=== PATIENT | female | born 1965 | race Caucasian/White ===

== ENCOUNTER 2019-05-30 06:45 | Emergency (ER) | payer BC, SELFPAY ==
--- NOTE | ~2019-05-30 | CT_ITS ---
EXAMINATION: CT abdomen pelvis w con DATE: 05/30/2019 07:47 INDICATION: Right flank pain TECHNIQUE: Computed tomography (CT) of the abdomen and pelvis was performed with 100 cc Omnipaque 350 intravenous contrast. The dose-length product was 862.60 mGy-cm. Automated exposure control and iter ative reconstruction technique were employed. COMPARISON: CT dated 02/06/2014 FINDINGS: Bibasilar dependent atelectasis. Heart size normal. No pleural or pericardial effusion. No significant vascular abnormality. Fatty infiltration of the liver. The spleen, pancreas, adrenal glands and right kidney are unremarkab le. There is a 2 cm left renal cyst. There are calcified granulomas in the spleen. Gallbladder is pre sent. Nonobstructive bowel gas pattern. Status post hysterectomy. Appendix is mildly thickened measur ing 8 mm transversely. No significant periappendiceal inflammation. No free air or free fluid. IMPRESSION: 1. Mild thickening of the appendix without significant periappendiceal inflammation. Cannot exclude e natasha acute appendicitis. Clinically correlate. 2: Hepatic steatosis. Reviewed, dictated and finalized at location A. IMPRESSION: 1. Mild thickening of the appendix without significant periappendiceal inflamma tion. Cannot exclude early acute appendicitis. Clinically correlate. 2: Hepatic steatosis.
[2019-05-30 06:51] VITALS: BP 140/89; PULSE 96; RESP 16; TEMP 36.5; O2SAT 99
--- NOTE | 2019-05-30 07:17 | ED.GENADULT ---
HPI - General Adult General Chief complaint: Back Pain/Injury Stated complaint: right flank pain Time Seen by Provider: 05/30/19 07:10 Source: RN notes reviewed History of Present Illness HPI narrative: Patient presents emergency department from home for right flank pain. Patient states symptoms began last night. Pain is located in the right flank and radiates around to the right lower abdomen. Patient states the pain is worse with movement. States she did take ibuprofen at approximately 5:30 AM this morning with minimal relief. States associated with nausea. Denies any fevers or chills chest pain shortness of breath diarrhea or any other symptoms. Patient denies any known trauma or injury Related Data Home Medications Medication Instructions Recorded Confirmed ibuprofen [Advil] 200 mg PO Q6H PRN 05/30/19 levothyroxine [Synthroid] 75 mcg PO DAILY 05/30/19 metformin 500 mg PO DAILY 05/30/19 byvovkzxllgs-mtcgfklr-mjoxwf 1 tablet PO DAILY 05/30/19 [Multivitamin 50 Plus] omega 2-vae-zda-fish oil [Fish Oil] 1 cap PO DAILY 05/30/19 rosuvastatin 10 mg PO DAILY 05/30/19 Allergies Allergy/AdvReac Type Severity Reaction Status Date / Time adhesive Allergy Mild Rash Verified 05/30/19 07:56 latex AdvReac Unknown Rash Verified 05/30/19 07:56 Review of Systems Review of Systems: Narrative: Gen.: Denies fevers or chills ENT: Denies congestion Respiratory: Denies shortness of breath or cough CV: Denies chest pain or palpitations GI: See HPI denies burning, urgency, frequency or hematuria Musculoskeletal: Denies back pain or muscle pain Neuro: Denies numbness, tingling, weakness or focal weakness Skin: Denies rash Except as documented, all other systems reviewed and negative FOR[facility]LY [facility] Past Medical History Medical History (Updated 05/30/19 @ 08:49 by Anthony Raman DO) Diabetes mellitus Hyperlipidemia Hypothyroidism Surgical History Surgical History (Updated 05/30/19 @ 07:18 by Anthony Raman DO) H/O: hysterectomy Family History Family History (Updated 10/19/15 @ 23:19 by DOCTOR UNKNOWN) Father Family history of chronic obstructive pulmonary disease Family history of diabetes mellitus in first degree relative Family history of lung cancer Family history of heart disease in male family member before age 55 Mother Carcinoma of colon Family history of heart disease in male family member before age 55 Social History Social History Smoking status: Never smoker Alcohol intake: never Exam Narrative: Exam Narrative: APPEARANCE: No acute distress, nontoxic, resting in bed HEENT: Normocephalic, atraumatic, OMM RESPIRATORY: No respiratory distress, clear to auscultation bilaterally with no rhonchi wheezing or rales CARDIOVASCULAR: RRR s murmur ABDOMINAL: Soft, nondistended, tender palpation right lower quadrant with mild tenderness right upper quadrant, no tenderness left lower quadrant left lower quadrant, no rebound or guarding Back: No midline thoracic lumbar tenderness palpation, tender palpation over right paravertebral muscles L3-5, pain increased with forward flexion MUSCULOSKELETAl: Moves all extremities. No clubbing, cyanosis or edema. NEURO: Awake and alert. Following commands, speech normal, no focal deficits muscle strength 5 out of 5 bilateral upper and lower extremities SKIN:: Warm, dry. Normal Color PSYCHIATRIC: Normal affect/mood Course Course Emergency Course: Following CT scan reevaluate the patient patient does have mild tenderness in the right lower quadrant Called discussed with Dr. Grimaldo will come see the patient in the emergency department Dr. Grimaldo came and evaluated the patient. At this time feels appendicitis is unlikely. Request patient start on Augmentin for 7 days and follow-up as an outpatient Discussed with patient results of workup and diagnosis. Discussed need for follow-up with primary care, pr
[2019-05-30] MEDS: LACTATED RINGERS 1,000 ML 999 ML IV CONT (07:29)
[2019-05-30] MEDS: MORPHINE SULFATE 4 MG/ML INJ IV PUSH (07:29)
[2019-05-30] MEDS: ONDANSETRON INJ 4 MG/2 ML VIAL IV PUSH (07:30)
[2019-05-30 07:33] LABS: Basophils Percent Auto 0.7 % (0.2-1.2); Eosinophils Absolute Auto 0.1 K/mm3 (0-0.3); Eosinophils Percent Auto 2.4 % (0-4.4); Hematocrit 41.7 % (37.0-47.0); Immature Granulocyte Absolute 0.03 K/mm3 (0.00-0.031); Immature Granulocyte Percent A 0.7 % (0-0.5); Lymphocytes Absolute Auto 1.29 K/mm3 (0.9-3.2); Lymphocytes Percent Auto 28.5 % (18.3-44.2); Mean Corpuscular HGB Conc 31.2 g/dl (32-36); Mean Corpuscular Hemoglobin 27.1 pg (26-34); Mean Corpuscular Volume 87.1 fl (80-100); Mean Platelet Volume 10.3 fl (7.4-10.4); Monocytes Absolute Auto 0.3 K/mm3 (0.1-0.6); Monocytes Percent Auto 7.3 % (2.6-8.5); Neutrophils Absolute Auto 2.7 K/mm3 (1.3-6.7); Neutrophils Percent Auto 60.4 % (45.5-73.1); Platelet Count Result 279 k/mm3 (150-375); Red Blood Count 4.79 M/mm3 (4.2-5.4); Red Cell Distribution Width 13.7 % (11.5-14.5); White Blood Count 4.5 K/mm3 (4.5-10.0)
[2019-05-30 07:35] LABS: Add Urine Microscopic? NO; Appearance Urine Clear (Clear); Bilirubin Urine Negative (Negative); Blood Urine Negative (Negative); Color Urine Colorless (Yellow); Glucose Urine UA Negative (Negative); Ketones Urine Negative (Negative); Leukocyte Esterase Ur Negative LEU/UL (Negative); Nitrate Urine Negative (Negative); Protein Urine Negative (Negative); Specific Grav Ur 1.006 (1.001-1.035); Urobilinogen Urine Negative mg/dL (<2.0)
[2019-05-30 07:43] LABS: Estimated Glomerular Filt Rate > 60
[2019-05-30 07:45] LABS: Alanine Aminotransferase 49 U/L (4-35); Albumin Level 4.8 g/dL (3.5-5.1); Alkaline Phosphatase 97 U/L (38-126); Aspartate Amino Transferase 33 U/L (14-36); Bilirubin,Total 0.6 mg/dL (0.2-1.3); Blood Urea Nitrogen 15 mg/dL (7-17); Calcium 9.7 mg/dL (8.4-10.2); Carbon Dioxide 26 mmol/L (22-30); Chloride 105 mmol/L (98-107); Estimated Glomerular Filt Rate > 60; Glucose 146 mg/dL (65-105); Lipase 228 U/L (23-300); Potassium 4.2 mmol/L (3.4-5.0); Sodium 138 mmol/L (137-145)
[2019-05-30 09:23] VITALS: BP 136/89; PULSE 76; RESP 20; O2SAT 95
--- NOTE | 2019-05-30 10:02 | PM.CNGS ---
Assessment and Plan Assessment and plan (1) Low back pain: Code(s): M54.5 - Low back pain Status: Acute Assessment and Plan: The patient was seen and examined. CT scan reviewed and discussed with the patient. There is no significant inflammation noted around the appendix on the CT scan and her appendix is only minimally thickened at 8 mm. No obvious appearance of acute appendicitis. Labs were unremarkable. Her white blood cell count is normal and she is afebrile. Her abdominal exam reveals very mild right lower quadrant tenderness with no guarding or rebound tenderness. She reports this as more of discomfort than pain during my exam. Her primary complaint is the pain in her lower back just right of the lumbar spine. This back pain is also reproducible on exam with palpation and with flexion and extension of the lumbar spine. Clinically, I have a low suspicion of early acute appendicitis, although this is possible, and believe that this is likely musculoskeletal pain. I discussed the case with Dr. Grimaldo, who will be evaluating the patient separately. It would be reasonable to treat her conservatively at this time with a course of outpatient oral antibiotics and also treat the suspected musculoskeletal pain. The patient should return if symptoms do not improve or worsen in the next 48 hours. I discussed the pathophysiology of appendicitis with the patient and what worsening symptoms would include to monitor for at home. All questions were answered. (2) Abdominal tenderness, right lower quadrant: Code(s): R10.813 - Right lower quadrant abdominal tenderness Status: Acute (3) Hyperlipidemia: Code(s): E78.5 - Hyperlipidemia, unspecified Status: Acute (4) Hypothyroidism: Code(s): E03.9 - Hypothyroidism, unspecified Status: Acute (5) Diabetes mellitus: Code(s): E11.9 - Type 2 diabetes mellitus without complications Status: Acute History of Present Illness Consult details Consult date: 05/30/19 Reason for consult: other (Surgical evaluation for possible acute appendicitis with a patient who has right flank pain with CT scan findings of a mildly thickened appendix) Requesting physician: Anthony Raman DO Narrative: This is a 54-year-old female with a history of hyperlipidemia, borderline diabetes mellitus type 2, and hypothyroidism, presented to the emergency department with complaints of right lower back pain. The patient reports that her symptoms started yesterday afternoon. She was sitting in a chair and had a sudden onset of right lower back pain without any radiating symptoms. She reports this as a constant dull pain that becomes a stabbing pain with certain movements. Pain would worsen with flexion and extension of the lumbar spine or while lying flat and supine in bed. The patient was unable to sleep last night and was taking Advil for the pain, which she felt did help some. This morning, she also noticed some right lower quadrant abdominal pain at times if she was bending forward, but this would go away at rest. The back pain continued into the morning and would not improve, therefore she presented to the emergency department for further evaluation. CT scan of the abdomen and pelvis revealed mild thickening of the appendix without significant periappendiceal inflammation, measuring 8 mm transversely, and hepatic steatosis. Labs were unremarkable and revealed a normal white blood cell count and normal urinalysis. Our service was then contacted for surgical evaluation of possible early acute appendicitis. The patient is now being seen in the emergency department. She reports the pain is all in her right lower back and points just right of the lumbar spine. She denies abdominal pain at rest. Denies vomiting, fever, chills, or change in appetite. Reports bowels have been moving normally without any changes. She does report a short episode of nausea on the ride to the
[2019-05-30] MEDS: AMOXICILLIN/CLAVULANATE K 875-125 MG TAB 1 TABLET PO (10:33)
[2019-05-30 10:45] VITALS: BP 130/78; PULSE 76; RESP 16; O2SAT 99
== END 2019-05-30 10:46 | disposition home or self-care (01) ==
PROVIDERS: Emergency Provider Emergency Medicine; PCP Physician Assistant
DX: M54.5 Low back pain (principal); R10.813 Right lower quadrant abdominal tenderness; E78.5 Hyperlipidemia, unspecified; E03.9 Hypothyroidism, unspecified; Z79.84 Long term (current) use of oral hypoglycemic drugs; R73.03 Prediabetes; K76.0 Fatty (change of) liver, not elsewhere classified; R93.5 Abnormal findings on diagnostic imaging of other abdominal regions, including retroperitoneum
CPT/HCPCS: 36415; 74177; 80048; 80076; 81003; 83690; 85025; 96361; 96374; 96375; 99284; A9270; J2270; J2405; J7120; Q9967

== ENCOUNTER 2020-06-19 10:10 | Emergency (ER) | payer BC, SELFPAY ==
[2020-06-19] VITALS (15 sets, daily range): BP systolic 121–169; BP diastolic 84–104; PULSE 76–89; RESP 13–24; TEMP 36.4–36.8; O2SAT 98
--- NOTE | ~2020-06-19 | XR_ITS ---
EXAMINATION: XR chest 2V 06/19/2020 10:40 INDICATION: Midsternal chest pain PROCEDURE: 2 view chest COMPARISON: 10/03/2015 FINDINGS: The lungs are clear. The cardiomediastinal silhouette is within normal limits. There are no pleural effusions. There is no pneumothorax suspected. IMPRESSION: 1: NO ACUTE CARDIOPULMONARY DISEASE. Reviewed, dictated and finalized at location B.
--- NOTE | ~2020-06-19 | US_ITS ---
EXAMINATION: US right upper quadrant EXAM DATE: 06/19/2020 11:37 INDICATION: Right upper quadrant abdominal pain. TECHNIQUE: Multiple grayscale and Doppler images of the abdomen right upper quadrant were obtained (b y a technologist who performed the scan) and subsequently reviewed. Comparison is made to prior exami nation from 07/03/2015. FINDINGS: The pancreatic head and body are normal in appearance. The pancreatic tail is not visualized. There is echogenic liver parenchyma, hepatic steatosis. There are no focal liver lesions identified. Th ere is no evidence of intrahepatic biliary duct dilation. Portal venous flow was seen in the hepatop edal, normal direction and has normal Doppler waveform. No right-sided hydronephrosis. Common bile duct measures 2 mm, which is normal. The gallbladder wall is normal in thickness, with ex pected amount of distention. No sonographic evidence of pericholecystic fluid. There is no cholelit hiases. Technologist performing exam reports patient did not demonstrate sonographic Welch's sign. Please note that this sign is less reliable in patients who have received pain medication. IMPRESSION: 1. Hepatic steatosis. 2. Normal gallbladder. Reviewed, dictated and finalized at location A.
--- NOTE | 2020-06-19 10:18 | ECG_ITS ---
Measurements Intervals [place] Rate: 85 P: 31 WI: 157 QRS: 5 QRSD: 90 T: -1 QT: 351 QTc: 418 Interpretive Statements SINUS RHYTHM LOW QRS VOLTAGE IN PRECORDIAL LEADS BORDERLINE T WAVE ABNORMALITY- INFERIOR LEADS BORDERLINE ECG Electronically Signed On 06-19-2020 10:30:12 CDT by Sid Pope D.O.
[2020-06-19 10:34] LABS: Basophils Percent Auto 0.5 % (0.2-1.2); Eosinophils Absolute Auto 0.1 K/mm3 (0-0.3); Eosinophils Percent Auto 2.5 % (0-4.4); Hemoglobin 13.7 g/dL (12.0-15.0); Immature Granulocyte Absolute 0.01 K/mm3 (0.00-0.031); Immature Granulocyte Percent A 0.2 % (0-0.5); Lymphocytes Absolute Auto 1.37 K/mm3 (0.9-3.2); Lymphocytes Percent Auto 31.3 % (18.3-44.2); Mean Corpuscular HGB Conc 31.9 g/dl (32-36); Mean Corpuscular Hemoglobin 27.6 pg (26-34); Mean Corpuscular Volume 86.5 fl (80-100); Mean Platelet Volume 9.9 fl (7.4-10.4); Monocytes Absolute Auto 0.4 K/mm3 (0.1-0.6); Monocytes Percent Auto 8.2 % (2.6-8.5); Neutrophils Absolute Auto 2.5 K/mm3 (1.3-6.7); Neutrophils Percent Auto 57.3 % (45.5-73.1); Platelet Count Result 275 k/mm3 (150-375); Red Blood Count 4.97 M/mm3 (4.2-5.4); Red Cell Distribution Width 13.6 % (11.5-14.5); White Blood Count 4.4 K/mm3 (4.5-10.0)
[2020-06-19 10:44] LABS: INR 0.9; Partial Thromboplastin Time 26.2 SECONDS (22.3-36.8); Prothrombin Time 12.3 Seconds (11.1-14.7)
[2020-06-19 10:45] LABS: Potassium 3.8 mmol/L (3.4-5.0)
[2020-06-19 10:47] LABS: Anion Gap 7 mmol/L (8-16); Blood Urea Nitrogen 17 mg/dL (7-17); Carbon Dioxide 30 mmol/L (22-30); Chloride 104 mmol/L (98-107); Estimated CRCL calculation 67 ml/min; Estimated Glomerular Filt Rate > 60; Glucose 113 mg/dL (65-105); Sodium 141 mmol/L (137-145)
[2020-06-19 10:58] LABS: Troponin I < 0.012 ng/mL (0.000-0.034)
--- NOTE | 2020-06-19 11:56 | ED.CHESTPAIN ---
HPI - Chest Pain General Chief Complaint: Chest Pain Stated Complaint: chest/back pain into jaw Time Seen by Provider: 06/19/20 10:55 History of Present Illness HPI narrative: Patient is a 55-year-old female who presents ER with right-sided chest pain beneath her breast that began at 9 AM. Sudden onset and sharp. Radiated to her back and up into her neck. She reports she has this a couple times a month has been going on for the last several years. This was more intense than typical so she opted to come in for evaluation. No history of coronary disease. She has had outpatient ultrasound 5 years ago that did not show gallstones. She denies any aggravating or alleviating factors. Symptoms lasted for couple minutes and then subsided. She reports she felt a little sweaty/clammy and nauseated when it occurred initially. Related Data Home Medications Medication Instructions Recorded Confirmed ibuprofen [Advil] 200 mg PO Q6H PRN 05/30/19 levothyroxine [Synthroid] 75 mcg PO DAILY 05/30/19 metformin 500 mg PO DAILY 05/30/19 njwvlilckorl-mjyjsvki-dftghe 1 tablet PO DAILY 05/30/19 [Multivitamin 50 Plus] omega 5-xbq-nop-fish oil [Fish Oil] 1 cap PO DAILY 05/30/19 rosuvastatin 10 mg PO DAILY 05/30/19 Allergies Allergy/AdvReac Type Severity Reaction Status Date / Time adhesive Allergy Mild Rash Verified 06/19/20 10:19 latex AdvReac Unknown Rash Verified 06/19/20 10:19 Review of Systems Review of Systems: All systems reviewed & are unremarkable except as noted in HPI and below Constitutional: Constitutional: Denies chills, Denies fever(s) and Denies weakness Cardiovascular: Cardiovascular: Reports chest pain, Denies rapid heart rate and Reports radiating jaw, neck or arm pain Respiratory: Respiratory: Denies cough, Denies dyspnea and Denies wheezing Gastrointestinal: Gastrointestinal: Reports abdominal pain, Denies diarrhea, Reports nausea and Denies vomiting Musculoskeletal: Musculoskeletal: Denies back pain and Denies muscle cramps PMF Past Medical History Medical History (Updated 06/19/20 @ 14:25 by Volodymyr Green MD) Diabetes mellitus Borderline diabetic on metformin Hyperlipidemia Hypothyroidism Surgical History Surgical History (Updated 05/30/19 @ 10:19 by CAYDEN Estrella) H/O: hysterectomy History of vaginal partial hysterectomy in 2000. History of bilateral salpingo-oophorectomy Laparoscopic bilateral salpingo-oophorectomy in 2018 History of colonoscopy Multiple. No significant findings per the patient. History of excision of mass Excision of lipoma of the neck. Multiple excisions of cysts on the head and right upper extremity. History of knee surgery Bilateral Family History Family History Father Family history of chronic obstructive pulmonary disease Family history of diabetes mellitus in first degree relative Family history of lung cancer Family history of heart disease in male family member before age 55 Kidney malignancy Mother Carcinoma of colon Family history of heart disease in male family member before age 55 Sibling Carcinoma of colon Social History Social History Smoking status: Never smoker Alcohol intake: never Substance use type: does not use Additional living arrangements comments: Lives with . Has two children. 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 Gender identity (if verbalized by the patient): Female Exam Narrative: Exam Narrative: GENERAL: Well-appearing, well-nourished, and in no acute distress. HEAD: Normocephalic, atraumatic. ENT: Mucous membranes moist. CHEST: Clear to auscultation. No respiratory distress. HEART: Regular rate and rhythm. Normal peripheral pulses. ABDOMEN: Soft, nontender, nondistended. EXTREMITIES: Normal range of motion. No edema. NEURO: Alert and
[2020-06-19 14:01] LABS: Troponin I < 0.012 ng/mL (0.000-0.034)
== END 2020-06-19 14:53 | disposition home or self-care (01) ==
PROVIDERS: Emergency Medicine; Emergency Provider Emergency Medicine; PCP Physician Assistant
DX: R07.9 Chest pain, unspecified (principal); R73.03 Prediabetes; Z79.84 Long term (current) use of oral hypoglycemic drugs; E78.5 Hyperlipidemia, unspecified; E03.9 Hypothyroidism, unspecified; K76.0 Fatty (change of) liver, not elsewhere classified
CPT/HCPCS: 36415; 71046; 76705; 80048; 84484; 85025; 85610; 85730; 93005; 99284

== ENCOUNTER → 2020-07-14 09:34 | Outpatient (CLI) | payer BC, SELFPAY ==
--- NOTE | ~2020-07-14 | XR_ITS ---
XR thoracic spine 3V 07/14/2020 11:38 Indication: Back pain Procedure: 3 views thoracic spine Comparison: 09/29/2017 Findings: Mild dextrocurvature of the thoracic spine. No fracture, subluxation or dislocation. Pedicl es intact. No paraspinal soft tissue abnormality. Surrounding osseous structures are unremarkable. No significant disc narrowing. Impression: 1: Mild dextroscoliosis of the thoracic spine. Reviewed, dictated and finalized at location A. Impression: 1: Mild dextroscoliosis of the thoracic spine.
== END ==
PROVIDERS: PCP Physician Assistant; Visit Provider Physician Assistant
DX: M54.6 Pain in thoracic spine (principal)
CPT/HCPCS: 72072

== ENCOUNTER → 2020-08-10 07:30 | Outpatient (CLI) | payer BC, SELFPAY ==
[2020-08-10 19:22] LABS: SARS-CoV-2 RNA PCR Negative
== END ==
PROVIDERS: PCP Physician Assistant; Visit Provider Internal Medicine Gastroenterology
DX: Z01.812 Encounter for preprocedural laboratory examination (principal); Z20.822 Contact with and (suspected) exposure to COVID-19
CPT/HCPCS: C9803; U0003; U0005

== ENCOUNTER 2020-08-13 00:32 | Day surgery (SDC) | payer BC, SELFPAY ==
[2020-08-02 10:12] VITALS: BMI 34.0
[2020-08-13 10:44] VITALS: BP 140/87; PULSE 80; RESP 20; TEMP 36.4; O2SAT 97
[2020-08-13] MEDS: LACTATED RINGERS 1,000 ML 150 ML IV CONT (10:56)
--- NOTE | 2020-08-13 10:59 | WPDANESEPPF ---
Anes - Initial Pre Proc Eval Procedure: Operation Date: 08/13/20 11:45 Proposed Procedures p Esophagogastroduodenoscopy - Abdulaziz Uribe MD Date/Time: 08/13/20 10:59 Surgeon: Abdulaziz Uribe MD Pre Op Diagnosis: GERD Patient Data Age: 55 Gender: F Height: 5 ft 4 in Weight: 90.6 kg Last Vital Signs Temp 36.4 C L 08/13/20 10:44 Pulse 80 08/13/20 10:44 Resp 20 08/13/20 10:44 BP 140/87 08/13/20 10:44 Pulse Ox 97 08/13/20 10:44 Allergies Allergy/AdvReac Type Severity Reaction Status Date / Time adhesive Allergy Mild Rash Verified 08/13/20 10:42 latex AdvReac Unknown Rash Verified 08/13/20 10:42 Home Medications Medication Instructions Recorded Confirmed Type cyclobenzaprine 10 mg PO TID PRN #10 tablet 05/30/19 08/13/20 Rx ibuprofen [Advil] 200 mg PO Q6H PRN 05/30/19 08/02/20 History levothyroxine [Synthroid] 75 mcg PO DAILY 05/30/19 08/02/20 History metformin 1,000 mg PO DAILY 05/30/19 08/02/20 History lnqqfwazlaig-dxmzcadj-cavfgc 1 tablet PO DAILY 05/30/19 08/02/20 History [Multivitamin 50 Plus] rosuvastatin 10 mg PO DAILY 05/30/19 08/02/20 History Patient hx anesthesia problems: none Family hx anesthesia problems: none PMFSH Past Medical History Medical History Diabetes mellitus Borderline diabetic on metformin Hyperlipidemia Hypothyroidism Surgical History Surgical History H/O: hysterectomy History of vaginal partial hysterectomy in 2000. History of bilateral salpingo-oophorectomy Laparoscopic bilateral salpingo-oophorectomy in 2018 History of colonoscopy Multiple. No significant findings per the patient. History of excision of mass Excision of lipoma of the neck. Multiple excisions of cysts on the head and right upper extremity. History of knee surgery Bilateral Family History Family History Father Family history of chronic obstructive pulmonary disease Family history of diabetes mellitus in first degree relative Family history of lung cancer Family history of heart disease in male family member before age 55 Kidney malignancy Mother Carcinoma of colon Family history of heart disease in male family member before age 55 Sibling Carcinoma of colon Social History Social History Smoking status: Former smoker Tobacco type: cigarettes Alcohol intake: current Drinks per week: 1 Substance use: never Substance use type: does not use Living arrangements: with family Additional living arrangements comments: Lives with . Has two children. 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 Gender identity (if verbalized by the patient): Female Spiritual care concerns: No Anes - Eval Final PreProcedure Day of Procedure 08/13/20 10:59 Patient weight: obese Heart: regular rate and rhythm Lungs: clear to auscultation Airway: Mallampati scale class II Neurological: alert and oriented Last oral intake: >/= 8 hours ASA classification: III Emergent: no Anesthetic plan: proceed Anesthesia type and monitoring: general GIVS and standard monitoring Informed Consent: The patient's anesthetic plan and its attendant risks and benefits were discussed with the patient/family/POA. Questions were solicited and answers provided to the satisfaction of the patient/family/POA.
[2020-08-13 11:06] LABS: Glucose Point of Care 87 mg/dl (65-105)
--- NOTE | 2020-08-13 11:10 | WPDGICN ---
Assessment and Plan Assessment and plan (1) Epigastric abdominal pain: Code(s): R10.13 - Epigastric pain Status: Acute Assessment and Plan: Patient has persistent epigastric and substernal pain despite treatment for acid reflux. Plan is for EGD to assess more thoroughly. Further recommendations will be given after endoscopy. (2) GERD (gastroesophageal reflux disease): Code(s): K21.9 - Gastro-esophageal reflux disease without esophagitis Status: Acute Assessment and Plan: Patient has a history of recurrent GE reflux disease with substernal pain or regurgitation. Plan is to maximize medical therapy. EGD will be performed. Patient is advised to avoid caffeine. Elevate head of bed at night. [place] diet is strongly encourage further recommendations will be given after endoscopy. GI Consult Note Consult date/time: 08/13/20 11:10 HPI: Heidi Adamson is a 55 year old female Seen in evaluation at the request of MATTI Sanchez. Patient has a long history of acid reflux. For at least the last year if not longer patient has had episodes of regurgitation and chest pain. This occurs typically at night. But will occur spontaneously during the day. She states she has significant epigastric and substernal burning. This is worse with spicy foods. Over the last 1 year she has been treated with omeprazole and now is on 40 mg p.o. daily. She states that even while taking this medication she will have chest pain 3 to 4 times a week. She denies any dysphagia or weight loss. She has had no bleeding. She has gone to the ER on several occasions most recently 1 month ago. Cardiac enzymes are negative for in [place] a gallbladder ultrasound was unremarkable. Patient presents today for EGD and adjusting her medication dose. Family history is noncontributory. Patient denies any travel. She does admit to continuing caffeine intake. Review of Systems Review of Systems: All systems reviewed & are unremarkable except as noted in HPI and below PMFSH Past Medical History Medical History Diabetes mellitus Borderline diabetic on metformin Hyperlipidemia Hypothyroidism Surgical History Surgical History H/O: hysterectomy History of vaginal partial hysterectomy in 1999. History of bilateral salpingo-oophorectomy Laparoscopic bilateral salpingo-oophorectomy in 2018 History of colonoscopy Multiple. No significant findings per the patient. History of excision of mass Excision of lipoma of the neck. Multiple excisions of cysts on the head and right upper extremity. History of knee surgery Bilateral Family History Family History Father Family history of chronic obstructive pulmonary disease Family history of diabetes mellitus in first degree relative Family history of lung cancer Family history of heart disease in male family member before age 55 Kidney malignancy Mother Carcinoma of colon Family history of heart disease in male family member before age 55 Sibling Carcinoma of colon Social History Social History Smoking status: Former smoker Tobacco type: cigarettes Alcohol intake: current Drinks per week: 1 Substance use: never Substance use type: does not use Living arrangements: with family Additional living arrangements comments: Lives with . Has two children. 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 Gender identity (if verbalized by the patient): Female Spiritual care concerns: No Meds Home Medications and Allergies Home Medications Medication Instructions Recorded Confirmed Type cyclobenzaprine 10 mg PO TID PRN #10 tablet 05/30/19 08/13/20 Rx ibuprofen [Advil] 200 mg PO Q6H PRN 05/30/19 08/02/20 Hist
[2020-08-13 11:31] VITALS: BP 116/79; PULSE 81; RESP 20; O2SAT 96
[2020-08-13 11:41] VITALS: BP 125/86; PULSE 76; RESP 18; O2SAT 98
[2020-08-13 11:51] VITALS: BP 129/83; PULSE 76; RESP 24; O2SAT 99
== END 2020-08-13 12:07 | disposition home or self-care (01) ==
PROVIDERS: PCP Physician Assistant; Visit Provider Internal Medicine Gastroenterology
PROC: 0DJ08ZZ Inspection of Upper Intestinal Tract, Via Natural or Artificial Opening Endoscopic (ICD-10-PCS; CPT 43235; principal; 2020-08-13 11:45)
DX: R10.13 Epigastric pain (principal); K21.9 Gastro-esophageal reflux disease without esophagitis; E11.9 Type 2 diabetes mellitus without complications; E78.5 Hyperlipidemia, unspecified; E03.9 Hypothyroidism, unspecified; Z90.710 Acquired absence of both cervix and uterus; Z90.722 Acquired absence of ovaries, bilateral; Z80.0 Family history of malignant neoplasm of digestive organs; Z87.891 Personal history of nicotine dependence
CPT/HCPCS: 43239; 82948; 87081; J2704; J7120

== ENCOUNTER → 2020-10-09 11:11 | Outpatient (CLI) | payer BC, SELFPAY ==
--- NOTE | ~2020-10-09 | XR_ITS ---
XR cervical spine 4-5V DATE: 10/09/2020 11:47 INDICATION: Neck pain, radiculopathy TECHNIQUE: Standing AP, open-mouth, odontoid and lateral views COMPARISON: 02/11/2014 CT cervical spine FINDINGS: There is straightening of the cervical spine. No fracture or dislocation or locked facet. C1 and C2 are normally aligned and the odontoid process i s intact. There is mild degenerative disc disease at C3-4 and moderately prominent degenerative disease at C4-5 , C5-C6 and C6-7. Uncovertebral joint spurring is noted at C4-5 and to a greater extent at C5-6 and C6-7 IMPRESSION: Moderate degenerative changes Straightening Reviewed, dictated and finalized at location A.
== END ==
PROVIDERS: PCP Physician Assistant; Visit Provider Physician Assistant
DX: M54.12 Radiculopathy, cervical region (principal); M50.30 Other cervical disc degeneration, unspecified cervical region
CPT/HCPCS: 72050

== ENCOUNTER 2021-04-03 13:17 | Outpatient (CLI) | payer BC, SELFPAY ==
--- NOTE | ~2021-04-03 | MMUS_ITS ---
EXAMINATION: MM diagnostic luis BI w olena, US breast LT complete HISTORY: Left breast pain TECHNIQUE: Additional 3-D tomosynthesis images of the breasts were performed and synthetic 2-D images were generated. CAD analysis was submitted and interpreted. High resolution complete left breast ult rasound was performed. COMPARISON: Comparison to multiple prior studies sequentially, with oldest reviewed study dated 08/12. BREAST PARENCHYMAL COMPOSITION: The breasts are heterogenously dense, which may obscure small masses FINDINGS: MAMMOGRAPHIC FINDINGS: . There are no suspicious masses, calcifications or architectural distortion in either breast to sugg est malignancy. ULTRASOUND: Complete bilateral US of all 4 quadrants of the the left and retroareolar region was reviewed. At 12: 00, 1 cm from the nipple there is a 9 mm cyst. At 1:00, 9 cm from the nipple there is an oval hypoech oic mass measuring 1.3 x 1.8 x 0.9 cm, likely benign lipoma or intramammary lymph node. At 6:00, 1 cm from the nipple there is a 5 mm cyst. IMPRESSION: 1. Probable benign left breast mass by ultrasound at 1:00, 9 cm from the nipple. 2. Recommend 6 month follow-up limited left breast ultrasound BI-RADS category 3, probably benign findings. Reviewed, dictated and finalized at location A. 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 Probable benign left breast mass by ultrasound at 1:00, 9 cm from the nipple . 2. Recommend 6 month follow-up limited left breast ultrasound BI-RADS category 3, probably benign findings.
== END 2021-04-03 13:18 | disposition home or self-care (01) ==
LOC: ANHIMG 13:18
PROVIDERS: PCP Physician Assistant; Visit Provider Physician Assistant
DX: N64.4 Mastodynia (principal); N60.02 Solitary cyst of left breast
CPT/HCPCS: 76641; 77062; 77066; G0279

== ENCOUNTER → 2021-09-09 09:47 | Outpatient (CLI) | payer BC, SELFPAY ==
--- NOTE | ~2021-09-09 | XR_ITS ---
EXAM: XR hand LT min 3V, XR hand RT min 3V DATE: 09/09/2021 10:23 HISTORY: Multiple joint pain . COMPARISON: X-ray left hand 09/29/2017. FINDINGS: Normal mineralization. No fracture or dislocation. No lytic or blastic lesion. Joint space s are maintained. No erosion or periosteal change. Soft tissues within normal limits. IMPRESSION: Normal left and right hand radiograph findings. Reviewed, dictated and finalized at location K. IMPRESSION: Normal left and right hand radiograph findings.
--- NOTE | ~2021-09-09 | XR_ITS ---
EXAMINATION: XR foot LT min 3V, XR foot RT min 3V DATE: 09/09/2021 10:24 INDICATION: Multiple joint pain TECHNIQUE: 1. Dorsoplantar, two oblique and lateral views of the left foot were obtained. 2. Dorsoplantar, two oblique and lateral views of the right foot were obtained. COMPARISON: Left foot radiographs dated 09/29/2017 FINDINGS: Normal alignment at the bilateral feet. No fractures. Joint spaces are normal. No erosions. Bilateral moderate-sized plantar calcaneal spurs and small enthesopathic ossicles at the bilateral calcaneal i nsertions of the distal Achilles tendons. No erosions to suggest inflammatory arthritis. No ankle patel nt effusions. Soft tissues are otherwise unremarkable. IMPRESSION: 1. 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 2. Normal joint space at the bilateral feet with no erosions to suggest inflammatory arthritis. Reviewed, dictated and finalized at location B. IMPRESSION: 1. 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 2. Normal joint space at the bilateral feet with no erosions to suggest inflamm atory arthritis.
== END ==
PROVIDERS: PCP Physician Assistant; Visit Provider Physician Assistant
DX: M25.50 Pain in unspecified joint (principal)
CPT/HCPCS: 73130; 73630

== ENCOUNTER 2021-10-07 12:16 | Outpatient (CLI) | payer BC, SELFPAY ==
--- NOTE | ~2021-10-07 | US_ITS ---
US breast LT limited 10/07/2021 12:59 Indication: Follow-up left breast masses Procedure: High-resolution Limited ultrasound of the left breast Comparison: No prior studies for comparison. Findings: At 12:00, 1 cm from the nipple there is a 9 mm cyst. At 1:00, 9 cm from the nipple there is a benign 1.3 cm intramammary lymph node. At 6:00 near the nipple there is a 4 mm cyst. No suspicious masses to suggest malignancy. Impression: 1: No evidence for malignancy in the left breast. Benign findings. Routine yearly screening mammogram and regular clinical breast examination are recommended. BI-RADS CATEGORY 2 - BENIGN FINDINGS Reviewed, dictated and finalized at location A. Impression: 1: No evidence for malignancy in the left breast. Benign findings. Routine yearly screening mammogram and regular clinical breast examination are recommended. BI-RADS CATEGORY 2 - BENIGN FINDINGS
== END 2021-10-07 12:17 | disposition home or self-care (01) ==
LOC: ANHIMG 12:18
PROVIDERS: PCP Physician Assistant; Visit Provider Physician Assistant
DX: R92.8 Other abnormal and inconclusive findings on diagnostic imaging of breast (principal)
CPT/HCPCS: 76642

== ENCOUNTER 2021-12-11 07:46 | Outpatient (CLI) | payer BC, SELFPAY ==
--- NOTE | 2021-12-24 19:15 | WPDHOMESLEEP ---
Sleep Study - Home Unattended Date of Study: 12/11/21 Ordering Provider: UNKNOWN,DOCTOR Interpreting Provider: Alejandra Self, DO Home Sleep Study Type: Apnea Link Air Height: 1.63 m Weight: 90.718 kg Body Mass Index: 34.3 Neck Circumference (inches): 15.75 [place]: 16 Reason for Sleep Study Previous diagnosis of TOMMIE, multiple nighttime awakenings Sleep History The patient frequently awakens from sleep short of breath. She frequently awakens at night with heartburn, belching or cough. She frequently snores loud enough that others complain. She occasionally has trouble sleeping when she has a cold. He occasionally wakes up gasping for air throughout the night. She occasionally has breathing problems at night observed by herself or others. She constantly sweats excessively at night. She rarely has heart palpitations or irregular heartbeats during the night. She occasionally falls asleep during the day but never while driving. She denies sleep paralysis and cataplexy. She occasionally experiences vivid dreamlike scenes upon awakening or falling asleep. She rarely has trouble at school or work due to sleepiness. She rarely feels afraid of going to sleep. She occasionally has nightmares. She occasionally remembers her dreams. She occasionally has thoughts racing through her mind. She rarely feels sad or depressed. She occasionally has anxiety. She frequently has muscular tension. She rarely notices parts of her body jerk. She denies kicking during the night. He denies having crawling and aching feelings in her legs as well as leg pain during the night. He frequently grinds her teeth during sleep and frequently awakens with morning jaw pain. She is frequently bothered by pain during the day and frequently awakened by pain during the night. She frequently wakes up feeling stiff the morning. She frequently wakes up with sore achy muscles. She frequently wakes up with pain the neck, spine and other joints. She goes to bed between 10-11 p.m. on both weekdays and weekends. She is able to fall asleep immediately. She wakes up 3 times throughout the night to urinate. It can take her 5 minutes to an hour to fall back asleep. She wakes up between 6-7 a.m. on both weekdays and weekends. She typically gets 4-6 hours of sleep per night. She will stay in bed for 5-15 minutes after waking up in the morning. She currently lives with her and sent. She will consume caffeinated tea within 2 hours of bedtime. She denies engaging in physical exercise before bedtime. She will read before falling asleep. She will take naps in the afternoon or the evening but they are not refreshing. She will drink caffeinated beverages throughout the day. She quit smoking 38 years ago. She will have an alcoholic beverage on the weekend occasionally. She denies recreational drug use. FORMERLY [facility], 1928–1983 Past Medical History Medical History Diabetes mellitus Borderline diabetic on metformin Hyperlipidemia Hypothyroidism Surgical History Surgical History H/O: hysterectomy History of vaginal partial hysterectomy in 1999. History of bilateral salpingo-oophorectomy Laparoscopic bilateral salpingo-oophorectomy in 2018 History of colonoscopy Multiple. No significant findings per the patient. History of excision of mass Excision of lipoma of the neck. Multiple excisions of cysts on the head and right upper extremity. History of knee surgery Bilateral Family History Family History Father Family history of chronic obstructive pulmonary disease Family history of diabetes mellitus in first degree relative Family history of lung cancer Family history of heart disease in male family member before age 55 Kidney malignancy Mother Carcinoma of colon Family history of heart dise
[2021-12-25 04:00] VITALS: BMI 34.3
--- NOTE | 2022-06-03 13:59 | SLEEP ---
new calls [phone]
== END 2021-12-12 12:39 | disposition home or self-care (01) ==
PROVIDERS: PCP Physician Assistant
DX: G47.33 Obstructive sleep apnea (adult) (pediatric) (principal)
CPT/HCPCS: 95806

== ENCOUNTER 2022-02-21 12:19 | Outpatient (CLI) | payer BC, SELFPAY ==
--- NOTE | 2022-02-24 13:16 | WPDPFTINT ---
PFT Procedure Performed PFT Procedure Performed Spirometry with Pre/Post Bronchodilator Plethysmography (Lung Vol) Diffusing Cap (DLCO) Flow Vol Loop PFT Interpretation Lung volumes were measured with the body plethysmography method. The diminished expiratory reserve volume is related to obesity. The remaining lung volumes are unremarkable. Spirometry showed normal expiratory flow rates and a normal FEV1 to FVC ratio 76%. Following administration of a bronchodilator there was significant increase in the FEV1. Lung diffusion capacity is within the normal range at 77% predicted. Impression: Spirometry, lung volumes, and lung diffusion capacity all within the normal range.
== END 2022-02-21 12:20 | disposition home or self-care (01) ==
PROVIDERS: PCP Physician Assistant; Visit Provider Physician Assistant
DX: R06.09 Other forms of dyspnea (principal)
CPT/HCPCS: 94060; 94726; 94729

== ENCOUNTER → 2022-02-21 13:47 | Outpatient (CLI) | payer BC, SELFPAY ==
--- NOTE | ~2022-02-21 | XR_ITS ---
EXAMINATION: XR chest 2V 02/21/2022 13:58 INDICATION: Dyspnea and cough PROCEDURE: 2 view chest COMPARISON: Comparison to multiple prior studies sequentially, with oldest reviewed study dated 11/11. FINDINGS: The lungs are clear. The cardiomediastinal silhouette is within normal limits. There are no pleural effusions. There is no pneumothorax suspected. IMPRESSION: 1: NO ACUTE CARDIOPULMONARY DISEASE. Reviewed, dictated and finalized at location A. 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
== END ==
PROVIDERS: PCP Physician Assistant; Visit Provider Physician Assistant
DX: R06.00 Dyspnea, unspecified (principal)
CPT/HCPCS: 71046

== ENCOUNTER 2022-04-09 13:10 | Outpatient (CLI) | payer BC, SELFPAY ==
--- NOTE | 2022-05-02 19:48 | WPDSLEEPSTUD ---
Sleep Study Date of Study: 04/09/22 Ordering Provider: Zohreh Sanchez, RONALDO Interpreting Physician: Kandi Wright MD Sleep Study Type: CPAP Titration Height: 1.63 m Weight: 89.811 kg Body Mass Index: 34.0 Neck Circumference (inches): 15.75 [place]: 16 Reason for Sleep Study *Home sleep test using ApneaLink with overall AHI of 24.6 with desaturation down to 68% consistent with moderate sleep apnea. Sleep History Heidi Adamson is a 56-year-old female with moderate obstructive sleep apnea on a home sleep test Dec 11, 2021. She is here for a PAP titration. She frequently awakens from sleep feeling short of breath.? She frequently awakens at night with heartburn, belching or coughing.? She frequently snores loudly enough that others complain.? She occasionally has trouble sleeping when she has a cold.? He occasionally wakes up gasping for air throughout the night.? She occasionally has breathing problems at night observed by others.? She constantly sweats excessively at night.? She rarely has heart palpitations or irregular heartbeats during the night.? She occasionally falls asleep during the day but never while driving.? She denies feeling paralyzed on falling asleep or on waking. She denied muscle weakness with strong emotion. She occasionally experiences vivid dreamlike scenes upon awakening or falling asleep.? She rarely has trouble at school or work due to sleepiness.? She rarely feels afraid of going to sleep.? She occasionally has nightmares.? She occasionally remembers her dreams.? She occasionally has thoughts racing through her mind.? She rarely feels sad or depressed.? She occasionally has anxiety.? She frequently has muscular tension.? She rarely notices parts of her body jerk.? She denies kicking during the night.? He denies having crawling and aching feelings in her legs or leg pain during the night.? He frequently grinds her teeth during sleep and frequently awakens with morning jaw pain.? She is frequently bothered by pain during the day and frequently awakened by pain during the night.? She frequently wakes up feeling stiff the morning.? She frequently wakes up with sore achy muscles.? She frequently wakes up with pain the neck, spine and other joints.? Normal bedtime is between 10-11 p.m., falling asleep immediately.? She wakes up 3 times throughout the night to urinate.? It can take her 5 minutes to an hour to return to sleep. She wakes up between 6-7 a.m. She typically gets 4-6 hours of sleep per night.? She will stay in bed for 5-15 minutes after waking up in the morning.? She will consume caffeinated tea within 2 hours of bedtime.? She takes naps in the afternoon or the evening which are not refreshing.? Habits: No tobacco for 38 years. Caffeine: she drinks caffeinated beverages throughout the day.? Alcohol: occasional alcoholic beverage on the weekends. She denies recreational substances. FORMERLY [facility] Past Medical History Medical History Diabetes mellitus Borderline diabetic on metformin Hyperlipidemia Hypothyroidism Surgical History Surgical History H/O: hysterectomy History of vaginal partial hysterectomy in 1999. History of bilateral salpingo-oophorectomy Laparoscopic bilateral salpingo-oophorectomy in 2018 History of colonoscopy Multiple. No significant findings per the patient. History of excision of mass Excision of lipoma of the neck. Multiple excisions of cysts on the head and right upper extremity. History of knee surgery Bilateral Family History Family History Father Family history of chronic obstructive pulmonary disease Family history of diabetes mellitus in first degree relative Family history of lung cancer Family history of heart disease in male family member before age 55 Kidney malignancy Mother Carcinoma of colon Family
[2022-05-02 20:18] VITALS: BMI 34.0
== END 2022-04-10 06:27 | disposition home or self-care (01) ==
LOC: ANHCSM 13:11
PROVIDERS: PCP Physician Assistant; Visit Provider Physician Assistant
DX: G47.33 Obstructive sleep apnea (adult) (pediatric) (principal)
CPT/HCPCS: 95811

== ENCOUNTER 2022-09-01 14:38 | Outpatient (CLI) | payer BC, SELFPAY ==
--- NOTE | ~2022-09-01 | MM_ITS ---
EXAMINATION: MM screening luis BI w olena HISTORY: Screening mammogram TECHNIQUE: Craniocaudal and mediolateral oblique 3-D tomosynthesis images were obtained and synthetic 2-D images were generated. CAD analysis was submitted and interpreted. COMPARISON: 10/07/2021 Limited left breast ultrasound examination 04/03/2021 diagnostic bilateral mammogram and complete left breast ultrasound examination 09/30/2018 bilateral screening mammogram BREAST PARENCHYMAL COMPOSITION: The breasts are heterogeneously dense, which may obscure small masses . FINDINGS: There is no evidence of suspicious mass, calcification, or architectural distortion to sugg est malignancy in either breast. There has been no suspicious interval change. IMPRESSION: 1. No mammographic evidence of malignancy. 2. Recommend routine screening mammography in one year. BI-RADS Category 1: Negative Reviewed, dictated and finalized at location A.
== END 2022-09-01 14:39 | disposition home or self-care (01) ==
LOC: ANHIMG 14:39
PROVIDERS: PCP Physician Assistant; Visit Provider Physician Assistant
DX: Z12.31 Encounter for screening mammogram for malignant neoplasm of breast (principal)
CPT/HCPCS: 77063; 77067

== ENCOUNTER 2023-05-30 07:58 | Outpatient (CLI) | payer BC, SELFPAY ==
--- NOTE | ~2023-05-30 | XR_ITS ---
EXAMINATION: XR hip LT min 2V DATE: 05/30/2023 09:05 INDICATION: Left hip pain. TECHNIQUE: 2 views of left hip were obtained. COMPARISON: None. FINDINGS: Bone alignment is normal. No fracture. There is mild left hip osteoarthritis. IMPRESSION: 1. Mild left hip osteoarthritis. Reviewed, dictated and finalized at location E. ECT INTERNSHIP
--- NOTE | ~2023-05-30 | XR_ITS ---
EXAMINATION: XR lumbar spine 2-3V DATE: 05/30/2023 09:05 INDICATION: Low back pain. TECHNIQUE: 3 views of lumbar spine were obtained. COMPARISON: CT abdomen and pelvis 05/30/2019 FINDINGS: There is 8 degrees levocurvature of lumbar spine. Vertebral body heights are normal. There are endplate osteophytes at multiple levels. Intervertebral disc heights are normal. There is multile alisia facet joint osteoarthritis, moderate lower lumbar spine. IMPRESSION: 1. Mild lumbar spondylosis. Reviewed, dictated and finalized at location E. 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 Mild lumbar spondylosis.
== END 2023-05-30 07:59 ==
PROVIDERS: PCP Physician Assistant; Visit Provider Physician Assistant
DX: M47.896 Other spondylosis, lumbar region (principal); M16.12 Unilateral primary osteoarthritis, left hip
CPT/HCPCS: 72100; 73502

== ENCOUNTER 2024-08-08 10:50 | Outpatient (CLI) | payer BC, SELFPAY ==
--- NOTE | ~2024-08-08 | CT_ITS ---
Clinical Indication: Hyperhidrosis CT Scan of the Chest with Contrast: Technique: Contiguous sections were acquired throughout the chest after intravenous administration of 100 cc of Omnipaque 350. Dose reduction technique was used on this scan by utilizing automated expos ure control and iterative reconstruction technique. The dose-length product (DLP) was 307.73 mGy-cm. Findings: There is no evidence of any significant mediastinal, hilar or axillary lymphadenopathy. There is no f illing defect in the pulmonary arterial tree to suggest pulmonary embolus. There is no evidence of ao rtic dissection or aneurysm. There is no evidence of pleural or pericardial effusion. The lungs are clear. No pulmonary nodules or infiltrates are noted. Images through the upper abdomen reveal no abnormalities. Small irregular sclerotic lesion present in the T2 vertebral body, indeterminate. Impression: Clear lungs. Small irregular sclerotic lesion in the T2 vertebral body, stable to decreased in extent as compared to prior neck CT dated 12/19/2007, therefore compatible with a benign finding. Reviewed, dictated and finalized at [facility]. Impression: Clear lungs. Small irregular sclerotic lesion in the T2 vertebral body, stable to decreased in extent as compared to prior neck CT dated 12/19/2007, therefore compatible wi th a benign finding.
[2024-08-08 11:06] LABS: Estimated Glomerular Filt Rate 57
== END 2024-08-08 10:51 | disposition home or self-care (01) ==
LOC: MICIMG 10:50
PROVIDERS: PCP Physician Assistant; Visit Provider Physician Assistant
DX: M89.8X8 Other specified disorders of bone, other site (principal); R61 Generalized hyperhidrosis
CPT/HCPCS: 71260; Q9967

== ENCOUNTER 2024-08-23 07:23 | Outpatient (CLI) | payer BC, SELFPAY ==
--- NOTE | ~2024-08-23 | MM_ITS ---
PROCEDURE: MM SCREENING [facility] [place] INDICATION: Asymptomatic, referred for screening mammogram COMPARISON: 09/01/2022 through 11/04/2006 TECHNIQUE: Digital breast tomosynthesis craniocaudal and mediolateral oblique views of Both breasts w ere obtained with computer-aided detection to assist in interpretation of the study. FINDINGS: The breasts are heterogeneously dense, which may obscure small masses. No focal dominant mass, architectural distortion, or suspicious microcalcifications are identified. There are no features to suggest malignancy. IMPRESSION: No evidence of malignancy in the breast. Recommend continued screening mammography BI-RADS 1, NEGATIVE Reviewed, dictated and finalized at location B.
--- OUTSIDE RECORDS SUMMARY | 2024-08-23 07:25 | XMS_ITS | Data Portability ---
Author Organization [facility] Address [address] [place] [address] Care Team Providers Care Coffin Maker Name Role Phone ZOHREH SANCHEZ Primary Care Provider Unavailab le Assessment Encounter Date Assessment Date Assessment LastModified by Organization Details LastModified Time 11/24/2023 11/24/2023 Mammogram due eye exam utd annually dentist UTD every 6 months. labs due. Not available 11/24/2023 09:24:14 05/17/2024 05/17/2024 sept colonoscopy 1 polyp, repeat 3 years: [facility]. Mammogram due , August 23 soonest she could get in. eye exam utd annually dentist UTD every 6 months. Not available 05/17/2024 12:48:07 Plan of Treatment Reminders Order Date Submit Date Provider Last Modified By Organization Details Last Modified Time Details Appointments ANY 15 2024 11:15A M MATTI Trujillo Not available Not available Not available Lab CMP, serum or plasma 2024 025 DOLORES Luz, [address], [place], [address], 08/03/2024 07:12:51 CBC w/ auto diff 2024 025 DOLORES Luz, [address], [place], [address], 08/03/2024 07:12:52 lipid panel, serum 2024 025 DOLORES Luz, [address], [place], [address], 08/03/2024 07:12:50 HbA1c (hemoglob in A1c), blood 2024 025 [facility], [address], [place], [address], 08/03/2024 07:12:52 TSH + free T4, serum 2024 025 DOLORES [facility], [address], [place], [address], 08/03/2024 07:12:50 CMP, serum or plasma 2023 024 [facility], [address], [place], [address], 12/12/2023 03:38:05 CBC w/ auto diff 2023 024 [facility], [address], [place], [address], 12/12/2023 03:38:06 lipid panel, serum 2023 024 DOLORES [facility], [address], [place], [address], 12/12/2023 03:38:04 HbA1c (hemoglob in A1c), blood 2023 024 [facility], [address], [place], [address], 12/12/2023 03:38:06 microalbu min, urine 2023 024 [facility], [address], [place], [address], 12/12/2023 03:38:04 TSH + free T4, serum 2023 024 [facility], [address], [place], [address], 12/12/2023 03:38:05 CBC w/ auto diff 2023 024 [facility], [address], [place], [address], 06/01/2023 13:09:08 CMP, serum or plasma 2023 024 [facility], [address], [place], [address], 06/01/2023 13:09:07 vitamin B12 + folate, serum or blood 2023 024 [facility], [address], [place], [address], 06/01/2023 13:09:07 lipid panel, serum 2023 024 [facility], [address], [place], [address], 06/01/2023 13:09:06 HbA1c (hemoglob in A1c), blood 2023 024 [facility], [address], [place], [address], 06/01/2023 13:09:08 C reactive protein, QN, serum or plasma 2023 024 [facility], [address], [place], [address], 06/01/2023 13:09:10 ESR (erythroc yte sedimenta tion rate), blood 2023 024 [facility], [address], [place], [address], 06/01/2023 13:09:09 QUIANA (antinucl ear antibodie s) screen, serum 2023 024 [facility], [address], [place], [address], 06/01/2023 13:09:05 rf (rheumato id factor) + anti-ccp abs, serum 2023 024 DOLORES [facility], [address], [place], [address], 06/01/2023 13:09:04 TSH + free T4, serum 2023 024 [facility], [address], [place], [address], 06/01/2023 13:09:06 Referral orthopedi c surgeon referral 2023 024 [email or web address] Deven Flores MD (Orthopedics) , [address], [address], [place], [address], 10/02/2023 07:53:43 Procedures colonosco py screening (PROC) 2023 024 [facility], [address], [address], [place], [address], 06/21/2024 12:55:14 Surgeries None recorded. Imaging CT, chest, w/ contrast [address] [facility], [address], [place], [address], 08/10/2024 07:58:55 MAMMO, screening , digital, bilateral 2023 024 [facility] (Mammography) , [address], [place], [address], 06/21/2024 12:55:48 XR, lumbosacr al spine, 2 or [address] [facility], [address], [place], [address], 06/01/2023 07:30:02 XR, hip, unilatera l 2023 024 [email or web address], [address], [place], [address], 06/25/2023 12:22:24 Medication Orders Zithromax Z-Morris [address] [id number] [address] [place], [address], 05/17/2024 13:06:27 venlafaxi ne ER 37.5 mg capsule,e xtended release [address] [id number], [address] [place], [address], 05/17/2024 13:06:30 Patient TargetsNo targets recorded. Patient Instructions Encounter Date Encounter Id Patient Instructions Last Modified By Organization Details Last Modified Time 11/24/2023 [id number] A healthy lifestyle: care instructions Not available 11/24/2023 09:22:55 05/17/2024 [id number] A healthy lifestyle: care instructions Not available 05/17/2024 13:06:22 Reason for Referral Orthopedic Surgeon Referral for Pain of left hip joint Referring Physician: Zohreh Sanchez, Internal Medicine, Encounter Date: 05/26/2023 Results Created Date Observation Date Name Description Value Unit Range Abnormal Flag Note LastModifiedBy Organization Detail LastModifiedTime 05/30/1905/31/2023 RHEUM ATOID ARTHR ITIS PROFI LE rheumatoid factor (rf) <10.0 IU/mL <14.0 Not Available [facility] ([facility]) [address], [place], [address], 06/01/2023 13:09:04 05/30/19 24 06/01/2023 RHEUM ATOID ARTHR ITIS PROFI LE anti-ccp Ab, IgG/IgA 2 units 0-19 Negat jelly <20 Weak posit jelly 20 - 39 Moder ate posit jelly 40 - 59 Stron g posit jelly >59 Not Available [facility] ([facility]) [address] [place], [address], 06/01/2023 13:09:04 05/30/19 24 06/01/2023 ANTIN UCLEA R AB MULTI PLEX RFX 9 QUIANA direct NEGATI VE negati ve Not Available [facility] ([facility]) [address] [place], [address], 06/01/2023 13:09:05 05/30/19 24 05/31/2023 TSH+F REE T4 TSH 1.080 uIU/m L 0.450- 4.500 Not Available [facility] ([facility]) [address] [place], [address], 06/01/2023 13:09:05 05/30/19 24 05/31/2023 TSH+F REE T4 T4,free(dire ct) 1.49 NG/dL 0.82-1 .77 Not Available [facility] ([facility]) [address] [place], [address], 06/01/2023 13:09:05 05/30/19 24 05/31/2023 LIPID PANEL cholesterol, total 122 mg/dL 100-19 9 Not Available [facility] ([facility]) [address] [place], [address], 06/01/2023 13:09:06 05/30/19 24 05/31/2023 LIPID PANEL triglyceride s 106 mg/dL 0-149 Not Available [facility] ([facility]) [address] [place], [address], 06/01/2023 13:09:06 05/30/19 24 05/31/2023 LIPID PANEL HDL cholesterol 46 mg/dL >39 Not Available [facility] ([facility]) [address] [place], [address], 06/01/2023 13:09:06 05/30/19 24 05/31/2023 LIPID PANEL VLDL cholesterol pineda 20 mg/dL 5-40 Not Available [facility] ([facility]) [address] [place], [address], 06/01/2023 13:09:06 05/30/19 24 05/31/2023 LIPID PANEL LDL chol calc ([facility]) 56 mg/dL 0-99 Not Available [facility]) [address] [place], [address], 06/01/2023 13:09:06 05/30/19 24 05/31/2023 COMP. METAB OLIC PANEL (14) glucose 84 mg/dL 70-99 Not Available [facility] ([facility]) [address] [place], [address], 06/01/2023 13:09:07 05/30/19 24 05/31/2023 COMP. METAB OLIC PANEL (14) BUN 18 mg/dL 6-24 Not Available [facility] ([facility]) [address] [place], [address], 06/01/2023 13:09:07 05/30/19 24 05/31/2023 COMP. METAB OLIC PANEL (14) creatinine 0.90 mg/dL 0.57-1 .00 Not Available [facility] ([facility]) [address] [place], [address], 06/01/2023 13:09:07 05/30/19 24 05/31/2023 COMP. METAB OLIC PANEL (14) eGFR 74 mL/mi n/1.7 3 >59 Not Available [facility] ([facility]) [address] [place], [address], 06/01/2023 13:09:07 05/30/19 24 05/31/2023 COMP. METAB OLIC PANEL (14) BUN/creatini ne ratio 20 9-23 Not Available [facility] ([facility]) [address], [place], [address], 06/01/2023 13:09:07 05/30/19 24 05/31/2023 COMP. METAB OLIC PANEL (14) sodium 141 mmol/ L 134-14 4 Not Available [facility] ([facility]) [address], [place], [address], 06/01/2023 13:09:07 05/30/19 24 05/31/2023 COMP. METAB OLIC PANEL (14) potassium 4.2 mmol/ L 3.5-5. 2 Not Available [facility] ([facility]) [address], [place], [address], 06/01/2023 13:09:07 05/30/19 24 05/31/2023 COMP. METAB OLIC PANEL (14) chloride 105 mmol/ L 96-106 Not Available [facility] ([facility]) [address] [place], [address], 06/01/2023 13:09:07 05/30/19 24 05/31/2023 COMP. METAB OLIC PANEL (14) carbon dioxide, total 25 mmol/ L 20-29 Not Available [facility] ([facility]) [address], [place], [address], 06/01/2023 13:09:07 05/30/19 24 05/31/2023 COMP. METAB OLIC PANEL (14) calcium 9.9 mg/dL 8.7-10 .2 Not Available [facility] ([facility]) [address] [place], [address], 06/01/2023 13:09:07 05/30/19 24 05/31/2023 COMP. METAB OLIC PANEL (14) protein, total 6.8 g/dL 6.0-8. 5 Not Available [facility] ([facility]) [address] [place], [address], 06/01/2023 13:09:07 05/30/19 24 05/31/2023 COMP. METAB OLIC PANEL (14) albumin 4.6 g/dL 3.8-4. 9 Not Available [facility] ([facility]) [address], [place], [address], 06/01/2023 13:09:07 05/30/19 24 05/31/2023 COMP. METAB OLIC PANEL (14) globulin, total 2.2 g/dL 1.5-4. 5 Not Available [facility] ([facility]) [address], [place], [address], 06/01/2023 13:09:07 05/30/19 24 05/31/2023 COMP. METAB OLIC PANEL (14) A/G ratio 2.1 1.2-2. 2 Not Available [facility] ([facility]) [address] [place], [address], 06/01/2023 13:09:07 05/30/19 24 05/31/2023 COMP. METAB OLIC PANEL (14) bilirubin, total 0.9 mg/dL 0.0-1. 2 Not Available [facility] ([facility]) [address] [place], [address], 06/01/2023 13:09:07 05/30/19 24 05/31/2023 COMP. METAB OLIC PANEL (14) alkaline phosphatase 108 IU/L 44-121 Not Available [facility]) [address], [place], [address], 06/01/2023 13:09:07 05/30/19 24 05/31/2023 COMP. METAB OLIC PANEL (14) AST (SGOT) 18 IU/L 0-40 Not Available [facility] ([facility]) [address] [place], [address], 06/01/2023 13:09:07 05/30/19 24 05/31/2023 COMP. METAB OLIC PANEL (14) ALT (SGPT) 20 IU/L 0-32 Not Available [facility] ([facility]) [address] [place], [address], 06/01/2023 13:09:07 05/30/19 24 05/31/2023 VITAM IN B12 AND FOLAT E vitamin B12 1238 pg/mL 232-12 45 Not Available [facility] ([facility]) [address] [place], [address], 06/01/2023 13:09:07 05/30/19 24 05/31/2023 VITAM IN B12 AND FOLAT E folate (folic acid), serum 14.0 NG/mL >3.0 A serum folat e ismael ntrat ion of less than 3.1 ng/mL is consi dered to repre sent clini pineda defic iency . Not Available [facility] ([facility]) [address], [place], [address], 06/01/2023 13:09:07 05/30/19 24 05/31/2023 HEMOG LOBIN A1C hemoglobin A1C 5.9 % 4.8-5. 6 above high normal Predi abete s: 5.7 - 6.4 Diabe elizabeth: >6.4 Glyce staci contr ol for adult s with diabe elizabeth: <7.0 Not Available [facility] ([facility]) [address] [place], [address], 06/01/2023 13:09:08 05/30/19 24 05/31/2023 CBC WITH DIFFE RENTI AL/PL ATELE T WBC 4.0 x10e3 /uL 3.4-10 .8 Not Available [facility] ([facility]) [address] [place], [address], 06/01/2023 13:09:08 05/30/19 24 05/31/2023 CBC WITH DIFFE RENTI AL/PL ATELE T RBC 4.74 x10e6 /uL 3.77-5 .28 Not Available [facility] ([facility]) [address], [place], [address], 06/01/2023 13:09:08 05/30/19 24 05/31/2023 CBC WITH DIFFE RENTI AL/PL ATELE T hemoglobin 12.7 g/dL 11.1-1 5.9 Not Available [facility] ([facility]) [address], [place], [address], 06/01/2023 13:09:08 05/30/19 24 05/31/2023 CBC WITH DIFFE RENTI AL/PL ATELE T hematocrit 39.7 % 34.0-4 6.6 Not Available [facility] ([facility]) [address], [place], [address], 06/01/2023 13:09:08 05/30/19 24 05/31/2023 CBC WITH DIFFE RENTI AL/PL ATELE T MCV 84 fL 79-97 Not Available [facility] ([facility]) [address] [place], [address], 06/01/2023 13:09:08 05/30/19 24 05/31/2023 CBC WITH DIFFE RENTI AL/PL ATELE T MCH 26.8 pg 26.6-3 3.0 Not Available [facility] ([facility]) [address] [place], [address], 06/01/2023 13:09:08 05/30/19 24 05/31/2023 CBC WITH DIFFE RENTI AL/PL ATELE T MCHC 32.0 g/dL 31.5-3 5.7 Not Available [facility] ([facility]) [address] [place], [address], 06/01/2023 13:09:08 05/30/19 24 05/31/2023 CBC WITH DIFFE RENTI AL/PL ATELE T RDW 13.6 % 11.7-1 5.4 Not Available [facility] ([facility]) [address], [place], [address], 06/01/2023 13:09:08 05/30/19 24 05/31/2023 CBC WITH DIFFE RENTI AL/PL ATELE T platelets 257 x10e3 /uL 150-45 0 Not Available [facility] ([facility]) [address], [place], [address], 06/01/2023 13:09:08 05/30/19 24 05/31/2023 CBC WITH DIFFE RENTI AL/PL ATELE T neutrophils 61 % notest ab. Not Available [facility] ([facility]) [address], [place], [address], 06/01/2023 13:09:08 05/30/19 24 05/31/2023 CBC WITH DIFFE RENTI AL/PL ATELE T lymphs 29 % notest ab. Not Available [facility] ([facility]) [address], [place], [address], 06/01/2023 13:09:08 05/30/19 24 05/31/2023 CBC WITH DIFFE RENTI AL/PL ATELE T monocytes 7 % notest ab. Not Available [facility] ([facility]) [address], [place], [address], 06/01/2023 13:09:08 05/30/19 24 05/31/2023 CBC WITH DIFFE RENTI AL/PL ATELE T eos 2 % notest ab. Not Available [facility] ([facility]) [address], [place], [address], 06/01/2023 13:09:08 05/30/19 24 05/31/2023 CBC WITH DIFFE RENTI AL/PL ATELE T basos 1 % notest ab. Not Available [facility] ([facility]) [address], [place], [address], 06/01/2023 13:09:08 05/30/19 24 05/31/2023 CBC WITH DIFFE RENTI AL/PL ATELE T neutrophils (absolute) 2.4 x10e3 /uL 1.4-7. 0 Not Available [facility] ([facility]) [address], [place], [address], 06/01/2023 13:09:08 05/30/19 24 05/31/2023 CBC WITH DIFFE RENTI AL/PL ATELE T lymphs (absolute) 1.2 x10e3 /uL 0.7-3. 1 Not Available [facility] ([facility]) [address], [place], [address], 06/01/2023 13:09:08 05/30/19 24 05/31/2023 CBC WITH DIFFE RENTI AL/PL ATELE T monocytes(ab solute) 0.3 x10e3 /uL 0.1-0. 9 Not Available [facility] ([facility]) [address] [place], [address], 06/01/2023 13:09:08 05/30/19 24 05/31/2023 CBC WITH DIFFE RENTI AL/PL ATELE T eos (absolute) 0.1 x10e3 /uL 0.0-0. 4 Not Available [facility] ([facility]) [address] [place], [address], 06/01/2023 13:09:08 05/30/19 24 05/31/2023 CBC WITH DIFFE RENTI AL/PL ATELE T baso (absolute) 0.0 x10e3 /uL 0.0-0. 2 Not Available [facility] ([facility]) [address] [place], [address], 06/01/2023 13:09:08 05/30/19 24 05/31/2023 CBC WITH DIFFE RENTI AL/PL ATELE T immature granulocytes 0 % notest ab. Not Available [facility] ([facility]) [address], [place], [address], 06/01/2023 13:09:08 05/30/19 24 05/31/2023 CBC WITH DIFFE RENTI AL/PL ATELE T immature grans (abs) 0.0 x10e3 /uL 0.0-0. 1 Not Available [facility] ([facility]) [address], [place], [address], 06/01/2023 13:09:08 05/30/19 24 05/31/2023 SEDIM ENTAT ION RATE- WESTE RGREN sedimentatio n rate-westerg willis 5 mm/HR 0-40 Not Available [facility] ([facility]) [address], [place], [address], 06/01/2023 13:09:09 05/30/19 24 05/31/2023 C-LOUIE CTIVE PROTE IN, QUANT C-reactive protein, quant <1 mg/L 0-10 Not Available [facility] ([facility]) [address], [place], [address], 06/01/2023 13:09:09 12/11/19 24 12/12/2023 ALBUM IN, RANDO M URINE albumin, urine 11.8 ug/mL notest ab. Not Available [facility] ([facility]) [address], [place], [address], 12/12/2023 03:38:03 12/11/19 24 12/12/2023 LIPID PANEL W/ CHOL/ HDL RATIO cholesterol, total 142 mg/dL 100-19 9 Not Available [facility] ([facility]) [address] [place], [address], 12/12/2023 03:38:04 12/11/19 24 12/12/2023 LIPID PANEL W/ CHOL/ HDL RATIO triglyceride s 85 mg/dL 0-149 Not Available [facility] ([facility]) [address], [place], [address], 12/12/2023 03:38:04 12/11/19 24 12/12/2023 LIPID PANEL W/ CHOL/ HDL RATIO HDL cholesterol 52 mg/dL >39 Not Available [facility] ([facility]) [address] [place], [address], 12/12/2023 03:38:04 12/11/19 24 12/12/2023 LIPID PANEL W/ CHOL/ HDL RATIO VLDL cholesterol pineda 16 mg/dL 5-40 Not Available [facility] ([facility]) [address] [facility], [place], [address], 12/12/2023 03:38:04 12/11/19 24 12/12/2023 LIPID PANEL W/ CHOL/ HDL RATIO LDL chol calc ([facility]) 74 mg/dL 0-99 Not Available [facility] ([facility]) [address] [place], [address], 12/12/2023 03:38:04 12/11/19 24 12/12/2023 LIPID PANEL W/ CHOL/ HDL RATIO T. chol/HDL ratio 2.7 ratio 0.0-4. 4 T. Chol/ HDL Ratio Men Women 1/2 Avg.R isk 3.4 3.3 Avg.R isk 5.0 4.4 2X Avg.R isk 9.6 7.1 3X Avg.R isk 23.4 11.0 Not Available [facility] ([facility]) [address], [place], [address], 12/12/2023 03:38:04 12/11/19 24 12/12/2023 TSH+F REE T4 TSH 1.030 uIU/m L 0.450- 4.500 Not Available [facility] ([facility]) [address] [place], [address], 12/12/2023 03:38:05 12/11/19 24 12/12/2023 TSH+F REE T4 T4,free(dire ct) 1.64 NG/dL 0.82-1 .77 Not Available [facility] ([facility]) [address] [place], [address], 12/12/2023 03:38:05 12/11/19 24 12/12/2023 COMP. METAB OLIC PANEL (14) glucose 89 mg/dL 70-99 Not Available [facility] ([facility]) [address] [place], [address], 12/12/2023 03:38:05 12/11/19 24 12/12/2023 COMP. METAB OLIC PANEL (14) BUN 19 mg/dL 6-24 Not Available [facility] ([facility]) [address] [place], [address], 12/12/2023 03:38:05 12/11/19 24 12/12/2023 COMP. METAB OLIC PANEL (14) creatinine 1.04 mg/dL 0.57-1 .00 above high normal Not Available [facility] ([facility]) [address] [place], [address], 12/12/2023 03:38:05 12/11/19 24 12/12/2023 COMP. METAB OLIC PANEL (14) eGFR 62 mL/mi n/1.7 3 >59 Not Available [facility] ([facility]) [address] [place], [address], 12/12/2023 03:38:05 12/11/19 24 12/12/2023 COMP. METAB OLIC PANEL (14) BUN/creatini ne ratio 18 9-23 Not Available [facility] ([facility]) [address] [place], [address], 12/12/2023 03:38:05 12/11/19 24 12/12/2023 COMP. METAB OLIC PANEL (14) sodium 141 mmol/ L 134-14 4 Not Available [facility] ([facility]) [address], [place], [address], 12/12/2023 03:38:05 12/11/19 24 12/12/2023 COMP. METAB OLIC PANEL (14) potassium 4.5 mmol/ L 3.5-5. 2 Not Available [facility] ([facility]) [address] [place], [address], 12/12/2023 03:38:05 12/11/19 24 12/12/2023 COMP. METAB OLIC PANEL (14) chloride 103 mmol/ L 96-106 Not Available [facility] ([facility]) [address], [place], [address], 12/12/2023 03:38:05 12/11/19 24 12/12/2023 COMP. METAB OLIC PANEL (14) carbon dioxide, total 24 mmol/ L 20-29 Not Available [facility] ([facility]) [address] [place], [address], 12/12/2023 03:38:05 12/11/19 24 12/12/2023 COMP. METAB OLIC PANEL (14) calcium 10.6 mg/dL 8.7-10 .2 above high normal Not Available [facility] ([facility]) [address], [place], [address], 12/12/2023 03:38:05 12/11/19 24 12/12/2023 COMP. METAB OLIC PANEL (14) protein, total 6.9 g/dL 6.0-8. 5 Not Available [facility] ([facility]) [address] [place], [address], 12/12/2023 03:38:05 12/11/19 24 12/12/2023 COMP. METAB OLIC PANEL (14) albumin 4.6 g/dL 3.8-4. 9 Not Available [facility] ([facility]) [address] [place], [address], 12/12/2023 03:38:05 12/11/19 24 12/12/2023 COMP. METAB OLIC PANEL (14) globulin, total 2.3 g/dL 1.5-4. 5 Not Available [facility] ([facility]) [address] [place], [address], 12/12/2023 03:38:05 12/11/19 24 12/12/2023 COMP. METAB OLIC PANEL (14) bilirubin, total 0.8 mg/dL 0.0-1. 2 Not Available [facility] ([facility]) [address] [place], [address], 12/12/2023 03:38:05 12/11/19 24 12/12/2023 COMP. METAB OLIC PANEL (14) alkaline phosphatase 94 IU/L 44-121 Not Available [facility] ([facility]) [address] [place], [address], 12/12/2023 03:38:05 12/11/19 24 12/12/2023 COMP. METAB OLIC PANEL (14) AST (SGOT) 19 IU/L 0-40 Not Available [facility] ([facility]) [address] [place], [address], 12/12/2023 03:38:05 12/11/19 24 12/12/2023 COMP. METAB OLIC PANEL (14) ALT (SGPT) 16 IU/L 0-32 Not Available [facility] ([facility]) [address] [place], [address], 12/12/2023 03:38:05 12/11/19 24 12/12/2023 HEMOG LOBIN A1C hemoglobin A1C 6.2 % 4.8-5. 6 above high normal Predi abete s: 5.7 - 6.4 Diabe elizabeth: >6.4 Glyce staci contr ol for adult s with diabe elizabeth: <7.0 Not Available [facility] ([facility]) [address] [place], [address], 12/12/2023 03:38:06 12/11/19 24 12/11/2023 CBC WITH DIFFE RENTI AL/PL ATELE T WBC 4.2 x10e3 /uL 3.4-10 .8 Not Available [facility] ([facility]) [address] [place], [address], 12/12/2023 03:38:06 12/11/19 24 12/11/2023 CBC WITH DIFFE RENTI AL/PL ATELE T RBC 4.86 x10e6 /uL 3.77-5 .28 Not Available [facility] ([facility]) [address] [place], [address], 12/12/2023 03:38:06 12/11/19 24 12/11/2023 CBC WITH DIFFE RENTI AL/PL ATELE T hemoglobin 13.4 g/dL 11.1-1 5.9 Not Available [facility] ([facility]) [address] [place], [address], 12/12/2023 03:38:06 12/11/19 24 12/11/2023 CBC WITH DIFFE RENTI AL/PL ATELE T hematocrit 43.1 % 34.0-4 6.6 Not Available [facility] ([facility]) [address] [place], [address], 12/12/2023 03:38:06 12/11/19 24 12/11/2023 CBC WITH DIFFE RENTI AL/PL ATELE T MCV 89 fL 79-97 Not Available [facility] ([facility]) [address] [place], [address], 12/12/2023 03:38:06 12/11/19 24 12/11/2023 CBC WITH DIFFE RENTI AL/PL ATELE T MCH 27.6 pg 26.6-3 3.0 Not Available [facility] ([facility]) [address] [facility], [place], [address], 12/12/2023 03:38:06 12/11/19 24 12/11/2023 CBC WITH DIFFE RENTI AL/PL ATELE T MCHC 31.1 g/dL 31.5-3 5.7 below low normal Not Available [facility] ([facility]) [address] [facility], [place], [address], 12/12/2023 03:38:06 12/11/19 24 12/11/2023 CBC WITH DIFFE RENTI AL/PL ATELE T RDW 13.8 % 11.7-1 5.4 Not Available [facility] ([facility]) [address] [facility], [place], [address], 12/12/2023 03:38:06 12/11/19 24 12/11/2023 CBC WITH DIFFE RENTI AL/PL ATELE T platelets 272 x10e3 /uL 150-45 0 Not Available [facility] ([facility]) [address] [facility], [place], [address], 12/12/2023 03:38:06 12/11/19 24 12/11/2023 CBC WITH DIFFE RENTI AL/PL ATELE T neutrophils 60 % notest ab. Not Available [facility] ([facility]) [address] [place], [address], 12/12/2023 03:38:06 12/11/19 24 12/11/2023 CBC WITH DIFFE RENTI AL/PL ATELE T lymphs 29 % notest ab. Not Available [facility] ([facility]) [address] [place], [address], 12/12/2023 03:38:06 12/11/19 24 12/11/2023 CBC WITH DIFFE RENTI AL/PL ATELE T monocytes 8 % notest ab. Not Available [facility] ([facility]) [address] [facility], [place], [address], 12/12/2023 03:38:06 12/11/19 24 12/11/2023 CBC WITH DIFFE RENTI AL/PL ATELE T eos 2 % notest ab. Not Available [facility] ([facility]) [address] [facility], [place], [address], 12/12/2023 03:38:06 12/11/19 24 12/11/2023 CBC WITH DIFFE RENTI AL/PL ATELE T basos 0 % notest ab. Not Available [facility] ([facility]) [address] [facility], [place], [address], 12/12/2023 03:38:06 12/11/19 24 12/11/2023 CBC WITH DIFFE RENTI AL/PL ATELE T neutrophils (absolute) 2.5 x10e3 /uL 1.4-7. 0 Not Available [facility] ([facility]) [address] [facility], [place], [address], 12/12/2023 03:38:06 12/11/19 24 12/11/2023 CBC WITH DIFFE RENTI AL/PL ATELE T lymphs (absolute) 1.2 x10e3 /uL 0.7-3. 1 Not Available [facility] ([facility]) [address] [place], [address], 12/12/2023 03:38:06 12/11/19 24 12/11/2023 CBC WITH DIFFE RENTI AL/PL ATELE T monocytes(ab solute) 0.3 x10e3 /uL 0.1-0. 9 Not Available [facility] ([facility]) [address] [place], [address], 12/12/2023 03:38:06 12/11/19 24 12/11/2023 CBC WITH DIFFE RENTI AL/PL ATELE T eos (absolute) 0.1 x10e3 /uL 0.0-0. 4 Not Available [facility] ([facility]) [address] [facility], [place], [address], 12/12/2023 03:38:06 12/11/19 24 12/11/2023 CBC WITH DIFFE RENTI AL/PL ATELE T baso (absolute) 0.0 x10e3 /uL 0.0-0. 2 Not Available [facility] ([facility]) [address] [facility], [place], [address], 12/12/2023 03:38:06 12/11/19 24 12/11/2023 CBC WITH DIFFE RENTI AL/PL ATELE T immature granulocytes 1 % notest ab. Not Available [facility] ([facility]) [address] [facility], [place], [address], 12/12/2023 03:38:06 12/11/19 24 12/11/2023 CBC WITH DIFFE RENTI AL/PL ATELE T immature grans (abs) 0.0 x10e3 /uL 0.0-0. 1 Not Available [facility] ([facility]) [address] [facility], [place], [address], 12/12/2023 03:38:06 06/01/19 24 05/30/2023 XR, lumbo sacra l spine , 2 or 3 view No observ ation record ed. [facility] [address], [place], [address], 11/24/2023 09:24:34 08/11/19 25 08/08/2024 CT, chest , w/ contr ast No observ ation record ed. [facility] [address], [place], [address], 08/10/2024 07:58:55 Result Notes None recorded. Problems Name Problem SNOMED Code Status Onset Date Resolution Date Notes Provider Name and Address Organization Details Recorded Time Type 2 diabetes mellitus 02504769 Active 2023 Felipa Scherer null, [place] - [facility] 4 15:58:46 Osteoarthri tis 127062244 Active 2023 Felipa Sc[place] [facility] 4 15:58:55 Hyperlipide cole 89292148 Active 2023 Felipa Sc[place] [facility] 4 15:59:05 Hypothyroid ism 59974158 Active 2023 Felipa Diorman [place] - [facility] 4 15:59:10 Low back pain 107288426 Active 2023 MATTI Trujillo Attn: Chris mayen,[address] [place], [address], [place] - [facility] 4 09:11:01 Pain of multiple joints 71157100 Active 2023 MATTI Trujillo Attn: Chris g,[address] [place], [address], [place] [facility] 4 09:11:02 Long-term drug therapy Active 2023 MATTI Turjillo Attn: Chris g,[address] [place], [address], [place] [facility] 4 09:11:03 Body mass index 30+ - obesity 384247469 Active 2023 MATTI Trujillo Attn: Accountin g,[address] [place], [address], [place] [facility] 4 09:12:05 Obesity 474821986 Active 2023 MATTI Trujillo Attn: Franin g,[address] [place], [address], [place] [facility] 4 09:12:10 Family history of cancer of colon 375716611 Active 2023 MATTI Trujillo Attn: Franshalonda mayen,[address] [place], [address], [facility] - [facility] 4 09:22:32 Well controlled type 2 diabetes mellitus 111686564 Active 2024 MATTI Trujillo Attn: Chris tiarra,[address] [place], [address], [facility] - [facility] 5 00:40:25 Night sweats 81154519 Active 2024 MATTI Trujillo Attn: Chris tiarra,[address] [place], [address], [facility] - [place] 5 00:41:31 Menopausal symptom 98449460 Active 2024 MATTI Trujillo Attn: Chris mayen,[address] [place], [address], [facility] - [place] 5 00:41:56 Positive screening for depression on PHQ-9 (Patient Health Questionnai re 9) 4500513132001 00 Active 2024 MATTI Trujillo Attn: Franshalonda mayen,[address] [place], [address], [facility] - [facility] 5 00:41:56 Problem Notes None recorded. Procedures Surgical History Date Name Laterality Status Provider Name and Address Organization Details Recorded Time 11/24/19 24 Diabetic Foot Exam completed Nicole Emerson MA [facility] 11/24/2023 09:04:01 ovarian ablation completed Nicole Emerson MA [facility] 05/26/2023 11:54:58 hysterectomy completed Nicole Emerson MA [facility] 05/26/2023 12:43:28 Knee Surgery completed Nicole Emerson MA [facility] 05/26/2023 12:43:34 ligation of bilateral fallopian tubes completed Nicole Emerson MA [facility] 05/26/2023 12:43:53 Imaging Results None recorded. Procedure Notes None recorded. Medical Equipment None Reported. Allergies Allergen ID Allergen Name Allergen Category Reaction Reaction Severity Criticality Documentation Date Start Date Code Code System Note Provider Name and Address Organization Details Recorded Time 611385 cefdinir medicatio n Not available Not available Not available 03/21/2024 52388 RxNorm MATTI Trujillo Attn: Chris mayen,[address] [facility], [place], [address], [facility] - [facility] 4 22:58:43 793756 Cipro medicatio n Not available Not available Not available 05/17/202467824 3 RxNorm Nicole Emerson MA [facility], [place] - [facility] 5 12:24:59 Medications Name Sig Start Date Stop Date Status Note LastModified by Organization Details LastModified Time amoxicillin 500 mg capsule TAKE 1 CAPSULE BY MOUTH 3 TIMES A DAY UNTIL FINISHED 11/23 completed Not Available Not Available Not Available venlafaxine ER 37.5 mg capsule,ext ended release 24 hr TAKE 1 CAPSULE BY MOUTH EVERY DAY active Not Available Not Available No t Available azithromyci n 250 mg tablet TAKE 2 TABLETS BY MOUTH TODAY, THEN TAKE 1 TABLET DAILY FOR 4 DAYS DIRECTED active Not Available Not Available No t Available benzonatate 200 mg capsule TAKE 1 CAPSULE BY MOUTH THREE TIMES A DAY NEEDED 05/25 completed Not Available Not Available Not Available hydrocodone 5 mg-acetamin ophen 325 mg tablet TAKE 1-2 TABS BY MOUTH EVERY 6 HOURS NEEDED FOR PAIN 11/23 completed Not Available Not Available Not Available meloxicam 7.5 mg tablet TAKE 1 TABLET TWICE A DAY BY ORAL ROUTE WITH MEAL(S). 11/23 completed Not Available Not Available Not Available Synthroid 75 mcg tablet Take 1 tablet every day by oral route for 90 days. active Not Available Not Available No t Available celecoxib 100 mg capsule TAKE 1 CAPSULE BY MOUTH TWICE A DAY active Not Available Not Available No t Available cefdinir 300 mg capsule TAKE 1 CAPSULE BY MOUTH EVERY 12 HOURS 05/17 completed Not Available Not Available Not Available fluticasone propionate 50 mcg/actuati on nasal spray,suspe nsion ADMINISTE R 2 SPRAYS INTO EACH NOSTRIL DAILY FOR 14 DAYS. active Not Available Not Available No t Available metformin ER 500 mg tablet,exte nded release 24 hr TAKE 2 TABLETS BY MOUTH EVERY DAY 2024 active Not Available Not Available Not Avai lable amoxicillin 875 mg-potassiu m clavulanate 125 mg tablet TAKE 1 TABLET BY MOUTH TWICE A DAY FOR 7 DAYS 05/17 completed Not Available Not Available Not Available rosuvastati n 10 mg tablet TAKE 1 TABLET BY MOUTH EVERY DAY 2024 active Not Available Not Available Not Avai lable Trulicity 1.5 mg/0.5 mL subcutaneou s pen injector INJECT 1.5 MG EVERY WEEK BY SUBCUTANE OUS ROUTE DIRECTED. 05/25 completed Not Available Not Available Not Available Trulicity 3 mg/0.5 mL subcutaneou s pen injector INJECT 3MG UNDER THE SKIN WEEKLY active Not Available Not Available No t Available Ozempic 0.25 mg or 0.5 mg (2 mg/3 mL) subcutaneou s pen injector week 1-4: inject 0.25mg sq weeklywee k 5 onward: inject 0.5mg sq weekly 11/23 completed Not Available Not Available Not Available Vitals Date Recorded Respiratory rate Systolic blood pressure Diastolic blood pressure Provider Name and Address Organization Details Last Updated DateTime 05/17/2024 18 /min 130 mm[Hg] 90 mm[Hg] MATTI Trujillo Attn: Accounting, [address] [place], [address], [facility] 05/17/2024 13:08:04 Date Recorded Body height Body mass index (BMI) Body weight Oxygen saturation Oxygen saturation in Arterial blood by Pulse oximetry Heart rate Systolic blood pressure Diastolic blood pressure Provider Name and Address Organization Details Last Updated DateTime 163.2 cm 32.2 kg/m2 78588.9 6 g 97 % 97 % 84 /min 142 mm[Hg] 82 mm[Hg] Nicole Emerson MA [facility] 12:29:01 Date Recorded Systolic blood pressure Diastolic blood pressure Provider Name and Address Organization Details Last Updated DateTime 05/26/2023 130 mm[Hg] 80 mm[Hg] MATTI Trujillo Attn: Accounting, [place], [address], [facility] 05/26/2023 12:29:12 Date Recorded Body weight Body mass index (BMI) Body height Heart rate Respiratory rate Oxygen saturation Oxygen saturation in Arterial blood by Pulse oximetry Systolic blood pressure Diastolic blood pressure Provider Name and Address Organization Details Last Updated DateTime 4 [address] g 31.3 kg/m2 163.2 cm 84 /min 18 /min 97 % 97 % 137 mm[Hg] 87 mm[Hg] Nicole Emerson MA [facility] 4 11:53:47 Date Recorded Systolic blood pressure Diastolic blood pressure Systolic blood pressure Diastolic blood pressure Provider Name and Address Organization Details Last Updated DateTime 11/24/2023 140 mm[Hg] 80 mm[Hg] 140 mm[Hg] 80 mm[Hg] MATTI Trujillo Attn: Accounting ,[address] [place], [address] , [facility] 4 09:21:17 Date Recorded Body height Respiratory rate Body mass index (BMI) Body weight Oxygen saturation Oxygen saturation in Arterial blood by Pulse oximetry Heart rate Systolic blood pressure Diastolic blood pressure Provider Name and Address Organization Details Last Updated DateTime 4 163.2 cm 18 /min 31.3 kg/m2 48308.2 8 g 96 % 96 % 82 /min 138 mm[Hg] 88 mm[Hg] Nicole Emerson MA [facility] 4 09:01:49 Social History Question Answer Notes LastModified by Organizat ion Details LastModified Time Tobacco Smoking Status Former Smoker Nicole Emerson MA null, [facility] 05/26/2023 11:55:43 Do You Have An Advance Directive? No Information n ot available 05/17/2024 Are You Blind Or Do You Have Difficulty Seeing? No Information n ot available 05/26/2023 What Is Your Level Of Caffeine Consumption? Heavy DAILY Information not available 05/26/2023 In The 14 Days Before Symptom Onset, Have You Had Close Contact With A Laboratory-confirm ed COVID-19 While That Case Was Ill? No Information n ot available 05/26/2023 In The 14 Days Before Symptom Onset, Have You Had Close Contact With A Person Who Is Under Investigation For COVID-19 While That Person Was Ill? No Information not available 05/26/2023 Have You Been To An Area Known To Be High Risk For COVID-19? No Information not available 05/26/2023 Are You Deaf Or Do You Have Serious Difficulty Hearing? No Information not available 05/26/2023 What Type Of Diet Are You Following? REGULAR Information n ot available 05/26/2023 Are There Any Guns Present In Your Home? No Information not available 05/26/2023 What Was The Date Of Your Most Recent Tobacco Screening? 05/17/2024 Information not available 05/17/2024 What Is Your Current Pack Years? 10packyears Information not available 05/26/2023 Do You Use Your Seat Belt Or Car Seat Routinely? Yes Information not available 05/26/2023 Do You Have Smoke And Carbon Monoxide Detectors In Your Home? Yes Information not available 05/26/2023 At What Age Did You Start Smoking Tobacco? 17 Information not available 05/26/2023 How Much Tobacco Do You Smoke? No Information not available 05/26/2023 Do You Use Sunscreen Routinely? Yes Information not available 05/26/2023 Has Tobacco Cessation Counseling Been Provided? Yes Information not available 05/26/2023 On What Date Was Tobacco Cessation Counseling Provided? 05/17/2024 Information not available 05/17/2024 Sex: Female Functional Status Question Answer Note LastModified by Organizat ion Details LastModified Time Do you use any illicit or recreational drugs? No Information not available 05/26/2023 Do you or have you ever used any other forms of tobacco or nicotine? No Information not available 05/26/2023 What is your level of alcohol consumption? Occasional Information not available 05/26/2023 Are you currently employed? Yes Information not available 05/17/2024 Are you able to care for yourself? Yes Information n ot available 05/26/2023 What is your exercise level? Occasional Information not available 05/17/2024 Mental Status Question Answer Note LastModified by Organization D etails LastModified Time Do you feel stressed (tense, restless, nervous, or anxious, or unable to sleep at night)? [id number] Information not available 05/17/2024 Family History Relationship Description Onset Age of this Age Resolved Age Notes LastModified by Organization Details LastModified Time Father Cerebrovascu lar accident tcarterma Not available 07/2023 12:44:43 Father Coronary arterioscler osis tcarterma Not available 2023 12:45:16 Father Diabetes mellitus tcarterma Not available 2023 12:45:49 Father Heart disease tcarterma Not available 2023 12:46:37 Father Hypertensive disorder tcarterma Not available 2023 12:46:58 Father Malignant neoplasm of lung tcarterma Not available 2023 12:47:16 Father Malignant tumor of kidney tcarterma Not available 2023 12:47:29 Mother Cerebrovascu lar accident tcarterma Not available 07/2023 12:44:43 Mother Malignant tumor of colon tcarterma Not available 2023 12:45:00 Mother Coronary arterioscler osis tcarterma Not available 2023 12:45:16 Mother Depressive disorder tcarterma Not available 2023 12:45:33 Mother Disorder of thyroid gland tcarterma Not available 2023 12:46:06 Mother Heart disease tcarterma Not available 2023 12:46:37 Sister Cerebrovascu lar accident tcarterma Not available 07/2023 12:44:43 Sister Depressive disorder tcarterma Not available 2023 12:45:33 Sister Diabetes mellitus tcarterma Not available 2023 12:45:49 Sister Disorder of thyroid gland tcarterma Not available 2023 12:46:06 Sister Heart disease tcarterma Not available 2023 12:46:37 Sister Hypertensive disorder tcarterma Not available 2023 12:46:58 Brother Malignant tumor of colon tcarterma Not available 2023 12:45:00 Brother Heart disease tcarterma Not available 2023 12:46:37 Brother Malignant neoplasm of bone tcarterma Not available 2023 12:47:43 Medical History Condition Response Coronary Artery Disease N Other N Atrial Fibrillation N High Blood Pressure N Thyroid Problems N Kidney or Bladder Problems N Depression N COPD N Blood Clots N GI Problems N Skin Problems N Anemia N Heart Attack ([place]) N Diabetes Y Anxiety Disorder N Muscle, Joint, or Bone Problems N Seizures/Epilepsy N Acid Reflux (GERD) Y Cancer N Stroke N Allergies N Asthma N High Cholesterol Y Hepatitis N Liver Disease N Headaches N Osteoporosis N Heart Failure N Gynecological History Statement/Question Response Menses Monthly N Current Control Method Hysterectom y Obstetrics History GPAL:G 2 P 2 0 0 2 Type Value Multiple Births 0 Full Term 2 Induced 0 Spontaneous 0 Premature 0 Living 2 Ectopics 0 Total 2 Immunizations Vaccine Type Date Status Note Provider Nam e and Address Organization Details Recorded Time COVID-19, mRNA, LNP-S, PF, 30 mcg/0.3 mL dose 05/22/2020 completed [facility], [place] - [facility] 05/17/2024 12:26:26 COVID-19, mRNA, LNP-S, PF, 30 mcg/0.3 mL dose 06/13/2020 completed [facility], [place] - [facility] 05/17/2024 12:26:26 Past Encounters Encounter ID Performer Location Encounter Start Date Encounter Closed Date Diagnosis/Indication Diagnosis SNOMED-CT Code Diagnosis ICD10 Code Diagnosis Note [id number] Karthik Ramirez MD [facility] [address] [place] [address] 05/26/2023 11:46:38 05/26/2023 15:58:29 Well controlled type 2 diabetes mellitus 937386550 E11.9 due for updated labs. Stable on metformin ER 500mg two daily and Trulicity 3mg weekly. Hyperlipidemia 25773482 E78.5 Stable on rosuvastat in 10mg daily and due for fasting labs. Hypothyroidism 06588462 E03.9 stable on synthroid 75mcg daily, and due for TFT panel. Osteoarthritis 816308490 M19.90 on Meloxicam 7.5mg bid, with mild improvemen t. Long-term drug therapy 601544307 Z79.899 routine CBC and CMP and B12, folate due. Pain of le ft hip joint 9445768257 16023 M25.552 refer for xray left hip joint and refer to Orthopedic for evaluation . Low back pain 254024563 M54.50 check updated LS spine xray. Pain of mu ltiple joints 42553189 M25.50 repeat ESR, CRP and QUIANA w/mulitple x and RA panels. this was done remotely but updated panel desired with her brother's autoimmune dx. [id number] Karthik Ramirez MD [facility] [place] [address] [facility] [address] [place] [address] 11/24/2023 08:51:59 11/24/2023 09:59:02 Well controlled type 2 diabetes mellitus 578084305 E11.9 Stable on metformin ER 500mg two daily and Trulicity 3mg weekly. labs due Hyperlipidemia 83561085 E78.5 Stable on rosuvastat in 10mg daily , labs due Hypothyroidism 04549838 E03.9 stable on synthroid 75mcg daily, labs due Osteoarthritis 071902843 M19.90 left hip and left knee. Long-term drug therapy 875325654 Z79.899 cbc and cmp due this month Low back pain 251972929 M54.50 seeing chiropract or, Dr. Henderson, for this. Pain of mu ltiple joints 55896404 M25.50 celebrex is helping better than meloxicam Adult heal th examination 879777729 Z00.01 annual wellness exam completed Body mass index 30+ - obesity 925129082 Z68.31 bmi 31.3 Obesity 595683311 E66.8 discussed healthy diet, exercise, controllin g carbohydra elizabeth and added sugars in the diet Family his tory of cancer of colon 894997666 Z80.0 refer again for colonoscop y. she has not heard yet to schedule. Screening mammography 24 122828 Z12.31 due for mammogram [id number] Karthik Ramirez MD [facility] [place] [facility] [address] [place] [address] 05/17/2024 12:09:54 05/17/2024 13:21:02 Body mass index 30+ - obesity 558874448 Z68.32 BMI 32.2 Obesity 621653100 E66.9 discussed healthy diet, exercise, controllin g carbohydra elizabeth and added sugars in the diet Well contr olled type 2 diabetes mellitus 780122985 E11.9 Stable on metformin ER 500mg two daily and Trulicity 3mg weekly. labs due in May Hyperlipidemia 14923829 E78.5 Stable on rosuvastat in 10mg daily , labs due Hypothyroidism 19428742 E03.9 stable on synthroid 75mcg daily, labs due Osteoarthritis 993737475 M19.90 left hip and left knee. Patient has followed with Orthopedic s Pain of mu ltiple joints 50857751 M25.50 celebrex is helping better than meloxicam but she still has quite a bit of pain. Weight loss and exercise will help for management Long-term drug therapy 883236143 Z79.899 CBC and CMP due Family his tory of cancer of colon 511929844 Z80.0 colonoscop y nov 2023 Acute sinusitis 01085284 J01.90 Start Z-Morris therapy for current sinus infection Positive s creening for depression on PHQ-9 (Patient Health Questionnaire 9) 9162265406 72652 Z13.31 Patient scored an 8 on screening today. Venlafaxin e being started for night sweats may help her overall mood. Night sweats 98274082 R6 1 Positive review of systems for night sweats that are increasing over the last year too. We will refer for CT of chest with contrast for more in-depth evaluation Menopausal symptom 12103 002 N95.1 Start trial of venlafaxin e low-dose Health Concerns Section Related Observation LastModified by Organization Detai ls LastModified Time None Recorded Concern Status LastModified by Organization Details LastModified Time None Recorded Advance Directives Directive N: Payers Encounter Date Sequence Insurance Name Policy Number Policy Martinez Covered Member ID Martinez Member ID Guarantor Name 05/26/2023 1 [employer] ([employer]) [id number] Karthik Adamson [id number] Heidi Adamson 11/24/2023 1 [place] [id number] Karthik Maierwlett [id number] Heidi Maierwlett 05/17/2024 1 [place] [id number] Karthik Maierwlett [id number] Heidi Maierwlett Notes Date Note Type Note Provider Name and Address Organization Details Recorded Time 05/26/19 24 text/htm l DiabetesReported bypatient.Notes:stable on trulicity 3mg weekly and metformin daily. due for labsHyperlipidemiaReported bypatient.Notes:stable on rosuvastatin 10mg daily. due for labsMusculoskeletal PainReported bypatient.Notes:osteoarthritis pain in left hip and low back. taking meloxicam 7.5mg bid and that is not helping enough.ThyroidReported bypatient.Notes:stable on synthroid 75mcg daily. due for labs MATTI Trujillo Attn: Accounting,[address] [place], [address], [facility] 05/26/2023 20:41:53 11/24/19 text/htm l DiabetesReported bypatient.Notes:stable on trulicity 3mg weekly and metformin daily. due for labsHyperlipidemiaReported bypatient.Notes:stable on rosuvastatin 10mg daily. due for labsMusculoskeletal PainReported bypatient.Notes:osteoarthritis pain in left hip and low back. now on celebrex therapy. seeing dr. braga at [facility] in [place]. hip injection helped at first but not now. left knee was also injected after she fell when walking dog.ThyroidReported bypatient.Notes:stable on synthroid 75mcg daily. due for labs MATTI Trujillo Attn: Accounting,[address] [facility], [place], [address], [facility] 11/24/2023 09:27:25 05/17/19 text/htm l CoughReported bypatient.Severity:improving Duration:intermittent Timing:better Context:non-smoker Associated Symptoms:no fever; no chills; no chest pain; no edema; no wheezingDiabetesReported bypatient.Notes:stable on trulicity 3mg weekly and metformin daily. due for labsHyperlipidemiaReported bypatient.Notes:stable on rosuvastatin 10mg daily. due for labsMusculoskeletal PainReported bypatient.Notes:osteoarthritis pain in left hip and low back. now on celebrex therapy. seeing dr. braga at [facility] in [place]. hip injection helped at first but not now. left knee was also injected after she fell when walking dog.ThyroidReported bypatient.Notes:stable on synthroid 75mcg daily. due for labs MATTI Trujillo Attn: Accounting,[address] [facility], [place], [address], [facility] 05/18/2024 00:42:21 OBGyn Episode No OBEpisode recorded.
--- OUTSIDE RECORDS SUMMARY | 2024-08-23 07:25 | XMS_ITS | Clinical Summary ---
Author Organization [facility] Address [address] [place] [address] Care Team Providers Care Business Office Director Name Role Phone Sukhjinder Chacon MD Primary Care Provider Source Comments [facility] Affiliates and Associated Physician Practices is amultiple site organization consisting of ambulatory clinics and hospital sitesin [place], [place], [place] and [place]. This disclosure is being madepursuant to the Care Everywhere program and may not contain all information available regarding this patient. Last updated 17.[facility] Allergies Active Allergy Reactions Criticality Noted Date Comments Latex Rash Medium 10/01/2017 Medications * Be aware that medications may not be up to date on this document. Alwaysverify current medications with the patient. atorvastatin (LIPITOR) 40 MG tablet Take 40 mg by mouth at bedtime Active omeprazole (PRILOSEC) 40 MG capsule Take 40 mg by mouth daily before breakfast Active ibuprofen (ADVIL) 200 MG tablet Take by mouth every 6 hours as needed for Pain Active Estradiol (ESTROGEL TD) Active Active Problems Problem Noted Date Diagnosed Date Preop examination Social History Tobacco Use Types Packs/Day Years Used Date Smoking Tobacco: Never Smokeless Tobacco: Never Alcohol Use Standard Drinks/Week Comments Yes 0 (1 standard drink = 0.6 oz pur e alcohol) occassional Comments No Sex and Gender Information Value Date Recorded Sex Assigned at Not on file Legal Sex Female 1:55 PM CDT Gender Identity Not on file Sexual Orientation Not on file Last Filed Vital Signs Vital Sign Reading Time Taken Comments Blood Pressure 137/90 11/17/2017 10:36 AM CDT Pulse 99 11/17/2017 10:36 AM CDT Temperature 36.8 C (98.3 F) 11/17/2017 10:36 AM CDT Respiratory Rate 16 10/07/2017 1:45 PM CDT Oxygen Saturation 98% 10/07/2017 1:45 PM CDT Inhaled Oxygen Concentration - - Weight 90.8 kg (200 lb 3.2 oz) 11/17/2017 10:36 AM CDT Height 162.6 cm (5' 4) 11/17/2017 10:36 AM CDT Body Mass Index 34.36 11/17/2017 10:36 AM CDT Plan of Treatment Health Maintenance Due Date Last Done Comments COLOGUARD (AGES 45-75) - COL ON CA SCREENING 1965 COLON MONITORING 1965 COLONOSCOPY - COLON CA SCREENING 1965 CT COLONOGRAPHY - COLON CA SCREENING 1965 Colorectal Cancer Screening 1965 FIT - COLON CA SCREENING 1965 FLEX SIG - COLON CA SCREENING 1965 MAMMOGRAM 1965 PAP SMEAR 1965 HIV SCREENING 1980 HEPATITIS C SCREENING 05/02/1983 DTAP/TDAP/TD VACCINES (1 - Tdap) 1984 HEPATITIS B VACCINE (1 of 3 - 19+ 3-dose series) 1984 PNEUMOCOCCAL VACCINE 50+ (1 of 1 - PCV) 2015 ZOSTER VACCINE (1 of 2) 2015 SCREENING FOR DIABETES 07/16/2017 COVID-19 VACCINE ( - 2023-2 5 season) 2023 DEPRESSION SCREENING 03/23/2024 INFLUENZA VACCINE (Season Ended) 2024 HIB VACCINE Aged Out No longer eligi ble based on patient's age to complete this topic HPV VACCINE Aged Out No longer eligi ble based on patient's age to complete this topic MENINGOCOCCAL (Group B) VACC INE SHARED DECISION-MAKING Aged Out No longer eligibl e based on patient's age to complete this topic MENINGOCOCCAL GROUPS A/C/Y/W VACCINE Aged Out No longer eligible b ased on patient's age to complete this topic Insurance ANTHEM Care Teams Business Office Director Relationship Specialty Start Date End Date Sukhjinder Chacon MD [address] [place] [address] PCP - General Internal Medicine 09/24/17
--- OUTSIDE RECORDS SUMMARY | 2024-08-23 07:25 | XMS_ITS | Encounter Summary ---
Author Organization [facility] Address [address] Attn: Epic Prelude ADT [place] [address] Care Team Providers Care Pipe Smoker Machine Operator Name Role Phone Unavailable Primary Care Provider Unavailabl e Encounter Details Date Type Department Care Team (Late st Contact Info) Description 05/16/1992 Outpatient Historical Bran Moses MD NO ADDRESS ON FILE Social History Tobacco Use Types Packs/Day Years Used Date Smoking Tobacco: Never Assessed Comments Unknown Sex and Gender Information Value Date Recorded Sex Assigned at Not on file Legal Sex Female 4:02 AM 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
--- OUTSIDE RECORDS SUMMARY | 2024-08-23 07:25 | XMS_ITS | Clinical Summary ---
Author Organization [facility] Address [address] [place] [address] Care Team Providers Care Cashier Assistant Name Role Phone Zohreh Sanchez Primary Care Pr ovider Allergies No known active allergies Medications metFORMIN XR (GLUCOPHAGE XR) 500 mg 24 hr tablet Take 2 tablets (1,000 mg total) by mouth daily Active rosuvastatin (CRESTOR) 10 mg tablet Take 1 tablet (10 mg total) by mouth daily Active Synthroid 75 mcg tablet Take 1 tablet (75 mcg total) by mouth every morning Active fluticasone propionate (FLONASE) 50 mcg/actuation nasal sprayIndication s:Acute maxillary sinusitis, recurrence not specified Administer 2 sprays into each nostril daily for 14 days 1 each 4 Active celecoxib (CeleBREX) 100 mg capsuleIndicati ons:Left hip pain TAKE 1 CAPSULE BY MOUTH TWICE A DAY 60 capsule 3 5 Active Active Problems Problem Noted Date Diagnosed Date Breast pain 07/02/2016 Solitary cyst of breast 07/02/2016 Abnormal findings on diagnostic imaging of breas t 07/05/2014 Disorder of breast 06/28/2014 Chronic pain 01/01/2014 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 Pain in extremity 01/01/2014 Osteoarthritis of cervical spine without myelopa thy 01/01/2014 Arthralgia of shoulder 12/09/2013 History of neoplasm 11/24/2013 Frequent headaches 11/24/2013 Arthritis 11/24/2013 Paresis 11/24/2013 Obesity 11/24/2013 Arthralgia of hip 07/16/2012 Surgical History Surgery Date Site/Laterality Comments WRIST SURGERY Wrist Surgery - (Added by Conv) [place] REPAIR PRIMARY TORN LIGM&/CAPSULE KNEE CRUCIAT Primary Repair Of Knee Ligament Cruciate Anterior - (Added by TW Conv) [place] TOTAL ABDOMINAL HYSTERECT W/WO RMVL TUBE OVARY Hysterectomy - (Added by TW Conv) LIPOMA RESECTION Surgery Excision Lipoma - (Added by Conv) [place] FLUORO GUIDED INJECTION HIP LEFT 11/11/2023 Left KNEE ARTHROSCOPY 03/23/1999 - 03/22/2000 Left ACL Medical History Medical History Date Comments 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, face and neck Lipoma of n [place] - (Added by Conv) Family History Medical History Relation Name Comments Heart attack Father Family history of myocardial infarction - (Added by TW Conv) Stroke Father Family history of cerebrovascular accident - (Added by TW Conv) Colon cancer Mother Colon adenocarc inoma - (Added by TW Conv) Heart attack Mother Family history of myocardial infarction - (Added by TW Conv) Stroke Mother Family history of cerebrovascular accident - (Added by TW Conv) Diabetes Other Family history of diabetes mellitus - (Added by TW Conv) Hypertension Other Family history of hypertension - (Added by TW Conv) Heart attack Sister Family history of myocardial infarction - (Added by TW Conv) Relation Name Status Comments Father Mother Other Sister Social History Tobacco Use Types Packs/Day Years Used Date Smoking Tobacco: Former Tobacco Cessation:Counseling Given: Not Answered Personal Safety Answer Date Recorded Getting School Help Needed Not on file 06/04 Comments Unknown Sex and Gender Information Value Date Recorded Sex Assigned at Not on file 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 Gender Identity Not on file Sexual Orientation Not on file Obstetrics History Last Filed Vital Signs Vital Sign Reading Time Taken Comments Blood Pressure 124/90 01/09/2024 9:48 AM CDT Pulse 82 01/09/2024 9:48 AM CDT Temperature 36.8 C (98.3 F) 01/09/2024 9:48 AM CDT Respiratory Rate - - Oxygen Saturation 96% 01/09/2024 9:48 AM CDT Inhaled Oxygen Concentration - - Weight 82.6 kg (182 lb) 01/09/2024 9:48 AM CDT Height 162.6 cm (5' 4) 01/09/2024 9:48 AM CDT Body Mass Index 31.24 01/09/2024 9:48 AM CDT Plan of Treatment Health Maintenance Due Date Last Done Comments Breast Cancer Screening-Mammogram 1965 Cervical Cancer Screening 1965 Colon Cancer Screening-Colonoscopy 1965 Depression Screening 1965 Hepatitis C Screening 1965 Hepatitis B Screening 1983 Regular Well Visit/Exam 18-64 1983 Zoster Vaccine (1 of 2) 2015 Influenza Vaccine (Season Ended) 2024 DTaP/Tdap/Td Vaccine (2 - Td or Tdap) 11/26/2028 11/26/2018 Pneumococcal vaccine <65 Aged Out No longer eligible based on patient's age to complete this topic Insurance [employer] OOS Walk[employer] OOS Care Teams Cashier Assistant Relationship Specialty Start Date End Date Zohreh Sanchez PA PCP - General Physician Bias Cutter 10/10/20
--- OUTSIDE RECORDS SUMMARY | 2024-08-23 07:25 | XMS_ITS | Referral Summary ---
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
--- OUTSIDE RECORDS SUMMARY | 2024-08-23 07:25 | XMS_ITS | Encounter Summary ---
Author Organization [facility] Address [address] Attn: Epic Prelude ADT [place] [address] Care Team Providers Care Speech Language Pathologist Prn Name Role Phone Unavailable Primary Care Provider Unavailabl e Encounter Details Date Type Department Care Team (Late st Contact Info) Description 02/02/1990 Outpatient Historical Bran Moses MD NO ADDRESS ON FILE Social History Tobacco Use Types Packs/Day Years Used Date Smoking Tobacco: Never Assessed Comments Unknown Sex and Gender Information Value Date Recorded Sex Assigned at Not on file Legal Sex Female 4:02 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
--- OUTSIDE RECORDS SUMMARY | 2024-08-23 07:25 | XMS_ITS | Clinical Summary ---
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
--- OUTSIDE RECORDS SUMMARY | 2024-08-23 07:26 | XMS_ITS | Data Portability ---
Author Organization [facility], Main Office Address [address] [place] [address] Care Team Providers Care Newsagent Name Role Phone SURAJ KATZ Primary Care Provider [phone] SURAJ KATZ Referring Provider Assessment No assessment recorded. Plan of Treatment Reminders Order Date Submit Date Provider Last Modified By Organization Details Last Modified Time Details Appointments None recorded. Lab HbA1c (hemoglobin A1c), blood 2022 024 [email or web address] [facility], [address], [place], [address], 4 08:39:14 albumin/cre atinine, mass ratio, urine 2022 024 [facility], [address], [place], [address], 4 08:39:15 microalbumi n, urine 2022 024 [facility], [address], [place], [address], 4 08:39:15 CMP, serum or plasma 2022 024 [email or web address] [facility], [address], [place], [address], 4 08:39:14 CBC w/ auto diff 2022 024 [email or web address] [facility], [address], [place], [address], 4 08:39:15 urinalysis, dipstick, reflex micro 2022 024 [email or web address] [facility], [address], [place], [address], 4 08:39:15 lipid panel, serum 2022 024 [email or web address] [facility], [address], [place], [address], 4 08:39:14 TSH + free T4, serum 2022 024 [email or web address] [facility], [address], [place], [address], 4 08:39:14 HbA1c (hemoglobin A1c), blood 2022 023 [email or web address] [facility], [address], [place], [address], 3 09:40:02 CMP, serum or plasma 2022 023 DOLORES Luz, [address], [place], [address], 3 09:17:16 lipid panel, serum 2022 023 DOLOR[facility] Luz, [address], [place], [address], 3 09:17:17 TSH + free T4, serum 2022 023 DOLORES Luz, [address], [place], [address], 3 09:17:17 Referral None recorded. Procedures colonoscopy screening (PROC) 2022 023 [email or web address] Abdulaziz Uribe MD, [address] [facility] [address], [place], [address], 4 10:19:52 Surgeries None recorded. Imaging None recorded. Medication Orders Trulicity 3 mg/0.5 mL subcutaneou s pen injector 2022 023 DOLORES [id number], [address] [place], [address], 3 08:56:37 Trulicity 1.5 mg/0.5 mL subcutaneou s pen injector 2022 023 [email or web address] [id number], [address] [facility], [place], [address], 3 08:56:33 Patient TargetsNo targets recorded. Patient InstructionsNo instructions recorded. Reason for Referral None Reported. Results Created Date Observation Date Name Description Value Unit Range Abnormal Flag Note LastModifiedBy Organization Detail LastModifiedTime 09/04/19 22 09/04/2021 ALBUM IN, RANDO M URINE albumin, urine 6.4 ug/mL not estab. Not Available [facility] ([facility] [place] [facility] [address] [facility], [place], [address], 09/06/2021 16:12:00 09/04/19 22 09/05/2021 A1C W/GLY COMAR K(R) REFLE X Hb A1C diabetic assessment 6.7 %Hb above high normal Note: A refle x test was order ed on this speci men. If A1c resul ts are betwe en a value of 6.0 to 8.0 (incl uding 6.0 and 8.0), Glyco Abdulaziz testi ng is perfo rmed. Glyco Abdulaziz refle cts post prand ial gluco se spike s from the past 2 weeks , where as A1c refle cts avera ge glyce staci contr ol over the past 3 month s. Refer ence Range : Monie l: <5.7 Incre ased risk for diabe elizabeth: 5.7 - 6.4 Ongoi ng Hyper glyce cole: >6.4 Glyce staci contr ol for adult s with diabe elizabeth: <7.0 (ADA) Not Available [facility] [address] [facility], [place], [address], 09/06/2021 16:12:00 09/04/19 22 09/05/2021 A1C W/GLY COMAR K(R) REFLE X estimated average glucose 146 mg/dL Not Available [facility] [address] [facility], [place], [address], 09/06/2021 16:12:00 09/04/19 22 09/06/2021 A1C W/GLY COMAR K(R) REFLE X glycomark(R) (1,5 Ag) 14.8 ug/mL Glyco Abdulaziz( TM) is inten ded for use with manag ing glyce staci contr ol in diabe tic patie nts. A low resul t corre spond s to high gluco se peaks . 1, 5-AG blood level s can be affec kiel by clini pineda condi tions or medic ation s. Pleas e refer to the direc tory of servi antonio or labco rp websi te test menu for detai led list of limit ation s. Refer ence Range : Adult s Femal es: 6.8 - 29.3 Glyce staci contr ol goal for diabe tic patie nts: >10 Not Available [facility] [address] [place], [address], 09/06/2021 16:12:00 09/04/19 22 09/04/2021 LIPID CASCA DE HDL cholesterol 41 mg/dL >39 Not Available [facility] [place] [place] [facility] [address] [facility], [place], [address], 09/06/2021 16:11:59 09/04/19 22 09/04/2021 LIPID CASCA DE LDL/HDL ratio 2.2 ratio 0.0-3. 2 LDL/H DL Ratio Men Women 1/2 Avg.R isk 1.0 1.5 Avg.R isk 3.6 3.2 2X Avg.R isk 6.2 5.0 3X Avg.R isk 8.0 6.1 Not Available [facility] ([facility] [place] [place] [facility] [address] [place], [address], 09/06/2021 16:11:59 09/04/19 22 09/04/2021 LIPID CASCA DE non-HDL cholesterol 119 mg/dL 0-129 Not Available [facility] ([facility] [place] [place] [facility] [address] [place], [address], 09/06/2021 16:11:59 09/04/19 22 09/04/2021 LIPID CASCA DE triglyceride s 162 mg/dL 0-149 above high normal Not Available [facility] ([facility] [place] [place] [facility] [address] [place], [address], 09/06/2021 16:11:59 09/04/19 22 09/04/2021 LIPID CASCA DE LDL chol calc (nih) 91 mg/dL 0-99 Not Available 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 [place] [place] [facility] [address] [place], [address], 09/06/2021 16:11:59 09/04/19 22 09/05/2021 LIPID CASCA DE LDL-P 1286 nmol/ L <1000 above high normal Low < 1000 Moder ate 1000 - 1299 Borde rline -High 1300 - 1599 High 1600 - 2000 Very High > 2000 Not Available [facility] ([facility] [place] [place] [facility]) [address] [place], [address], 09/06/2021 16:11:59 09/04/19 22 09/05/2021 LIPID CASCA DE HDL-P (total) 36.4 umol/ L >=30.5 Not Available [facility] ([facility] [place] [place] [facility] [address] [facility], [place], [address], 09/06/2021 16:11:59 09/04/19 22 09/05/2021 LIPID CASCA DE small LDL-P 778 nmol/ L <=527 above high normal Not Available [facility] ([facility] [place] [place] [facility] [address] [facility], [place], [address], 09/06/2021 16:11:59 09/04/19 22 09/05/2021 LIPID CASCA DE LDL size 20.2 nm >20.5 below low normal ----- ----- ----- ----- ----- ----- ----- ----- ----- ----- ----- --- INTER PRETA TIVE INFOR MATIO N PARTI STACI CAM NTRAT ION AND SIZE <--Lo wer CVD Risk Highe r CVD Risk- -> LDL AND HDL PARTI CLES Perce ntile in Refer ence Popul ation HDL-P (tota l) High 75th 50th 25th Low >34.9 34.9 30.5 26.7 <26.7 Small LDL-P Low 25th 50th 75th High <117 117 527 839 >839 LDL Size <-Lar ge (Katelin fred A)-> <-Sma ll (Katelin fred B)-> 23.0 20.6 20.5 19.0 ----- ----- ----- ----- ----- ----- ----- ----- ----- ----- ----- --- Small LDL-P and LDL Size are assoc iated with CVD risk, but not after LDL-P is taken into accou nt. Not Available [facility] ([facility] [place] [place] [facility] [address] [facility], [place], [address], 09/06/2021 16:11:59 09/04/19 22 09/05/2021 LIPID CASCA DE LP-IR score 82 <=45 above high normal INSUL IN RESIS TANCE MARKE R <--In sulin Sensi tive Insul in Resis tant- -> Perce ntile in Refer ence Popul ation Insul in Resis tance Score LP-IR Score Low 25th 50th 75th High <27 27 45 63 >63 LP-IR Score is inacc urate if patie nt is non-f astin g. The LP-IR score is a labor atory devel oped index that has been assoc iated with insul in resis tance and diabe elizabeth risk and shoul d be used as one compo nent of a physi doretha' s clini pineda asses sment . Not Available [facility] ([facility] [place] [place] [facility]) [address] [place], [address], 09/06/2021 16:11:59 09/04/19 22 09/04/2021 URINA LYSIS , COMPL ETE specific gravity 1.020 1.005- 1.030 Not Available [facility] ([facility] [place] [place] [facility] [address] [place], [address], 09/06/2021 16:11:59 09/04/19 22 09/04/2021 URINA LYSIS , COMPL ETE pH 6.0 5.0-7. 5 Not Available [facility] ([facility] [place] [place] [facility] [address] [place], [address], 09/06/2021 16:11:59 09/04/19 22 09/04/2021 URINA LYSIS , COMPL ETE urine-color yellow yellow Not Available [facility] ([facility] [place] [place] [facility] [address] [place], [address], 09/06/2021 16:11:59 09/04/19 22 09/04/2021 URINA LYSIS , COMPL ETE appearance clear clear Not Available [facility] ([facility] [place] [place] [facility] [address] [place], [address], 09/06/2021 16:11:59 09/04/19 22 09/04/2021 URINA LYSIS , COMPL ETE WBC esterase negati ve negati ve Not Available [facility] ([facility] [place] [place] [facility] [address] [place], [address], 09/06/2021 16:11:59 09/04/19 22 09/04/2021 URINA LYSIS , COMPL ETE protein negati ve negati ve/tra ce Not Available [facility] ([facility] [place] [place] [facility] [address] [place], [address], 09/06/2021 16:11:59 09/04/19 22 09/04/2021 URINA LYSIS , COMPL ETE glucose negati ve negati ve Not Available [facility] ([facility] [place] [place] [facility]) [address] [place], [address], 09/06/2021 16:11:59 09/04/19 22 09/04/2021 URINA LYSIS , COMPL ETE urobilinogen ,semi-qn 0.2 mg/dL 0.2-1. 0 Not Available [facility] ([facility] [place] [place] [facility]) [address] [place], [address], 09/06/2021 16:11:59 09/04/19 22 09/04/2021 URINA LYSIS , COMPL ETE ketones negati ve negati ve Not Available [facility] ([facility] [place] [place] [facility] [address] [place], [address], 09/06/2021 16:11:59 09/04/19 22 09/04/2021 URINA LYSIS , COMPL ETE occult blood negati ve negati ve Not Available [facility] ([facility] [place] [place] [facility] [address] [place], [address], 09/06/2021 16:11:59 09/04/19 22 09/04/2021 URINA LYSIS , COMPL ETE bilirubin negati ve negati ve Not Available [facility] ([facility] [place] [place] [facility]) [address] [place], [address], 09/06/2021 16:11:59 09/04/19 22 09/04/2021 URINA LYSIS , COMPL ETE nitrite, urine negati ve negati ve Not Available [facility] ([facility] [place] [place] [facility] [address] [facility], [place], [address], 09/06/2021 16:11:59 09/04/19 22 09/04/2021 URINA LYSIS , COMPL ETE microscopic examination commen t Micro scopi c follo ws if indic ated. Not Available [facility] ([facility] [place] [place] [facility] [address] [facility], [place], [address], 09/06/2021 16:11:59 09/04/19 22 09/04/2021 URINA LYSIS , COMPL ETE microscopic examination see below: Micro scopi c was indic ated and was perfo rmed. Not Available [facility] ([facility] [place] [place] [facility] [address] [facility], [place], [address], 09/06/2021 16:11:59 09/04/19 22 09/04/2021 URINA LYSIS , COMPL ETE WBC 6-10 /hpf 0 - 5 abnormal Not Available [facility] ([facility] [place] [place] [facility] [address] [facility], [place], [address], 09/06/2021 16:11:59 09/04/19 22 09/04/2021 URINA LYSIS , COMPL ETE RBC 0-2 /hpf 0 - 2 Not Available [facility] ([facility] [place] [place] [facility] [address] [place], [address], 09/06/2021 16:11:59 09/04/19 22 09/04/2021 URINA LYSIS , COMPL ETE epithelial cells (non renal) 0-10 /hpf 0 - 10 Not Available [facility] (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 [place] [place] [facility] [address] [facility], [place], [address], 09/06/2021 16:11:59 09/04/19 22 09/04/2021 URINA LYSIS , COMPL ETE casts none seen /lpf none seen Not Available [facility] ([facility] [place] [place] [facility] [address] [facility], [place], [address], 09/06/2021 16:11:59 09/04/19 22 09/04/2021 URINA LYSIS , COMPL ETE cast type nonprofit financial controller Not Available [facility] (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 [place] [place] [facility] [address] [place], [address], 09/06/2021 16:11:59 09/04/19 22 09/04/2021 URINA LYSIS , COMPL ETE crystal type nonprofit financial controller Not Available [facility] [place] [place] [facility] [address] [facility], [place], [address], 09/06/2021 16:11:59 09/04/19 22 09/04/2021 URINA LYSIS , COMPL ETE mucus threads nonprofit financial controller Not Available [facility] ([facility] [place] [place] [facility] [address] [place], [address], 09/06/2021 16:11:59 09/04/19 22 09/04/2021 URINA LYSIS , COMPL ETE bacteria modera te none seen/f ew abnormal Not Available [facility] ([facility] [place] [place] [facility] [address] [place], [address], 09/06/2021 16:11:59 09/04/19 22 09/04/2021 URINA LYSIS , COMPL ETE yeast nonprofit financial controller Not Available [facility] ([facility] [place] [place] [facility] [address] [facility], [place], [address], 09/06/2021 16:11:59 09/04/19 22 09/04/2021 URINA LYSIS , COMPL ETE trichomonas nonprofit financial controller Not Available [facility] (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 [place] [place] [facility] [address] [facility], [place], [address], 09/06/2021 16:11:59 09/04/19 22 09/04/2021 CMP14 +4AC glucose 97 mg/dL 65-99 Not Available [facility] ([facility] [place] [place] [facility] [address] [place], [address], 09/06/2021 16:11:58 09/04/19 22 09/04/2021 CMP14 +4AC BUN 24 mg/dL 6-24 Not Available [facility] ([facility] [place] [place] [facility] [address] [facility], [place], [address], 09/06/2021 16:11:58 09/04/19 22 09/04/2021 CMP14 +4AC creatinine 0.91 mg/dL 0.57-1 .00 Not Available [facility] ([facility] [place] [place] [facility] [address] [place], [address], 09/06/2021 16:11:58 09/04/19 22 09/04/2021 CMP14 +4AC eGFR 74 mL/mi n/1.7 3 >59 Not Available [facility] ([facility] [place] [place] [facility] [address] [facility], [place], [address], 09/06/2021 16:11:58 09/04/19 22 09/04/2021 CMP14 +4AC sodium 140 mmol/ L 134-14 4 Not Available [facility] ([facility]) [address] [facility] [place], [address], 09/06/2021 16:11:58 09/04/19 22 09/04/2021 CMP14 +4AC potassium 4.8 mmol/ L 3.5-5. 2 Not Available [facility] ([facility]) [address] [facility] [place], [address], 09/06/2021 16:11:58 09/04/19 22 09/04/2021 CMP14 +4AC chloride 102 mmol/ L 96-106 Not Available [facility] ([facility] [place] [place] [facility] [address] [facility] [place], [address], 09/06/2021 16:11:58 09/04/19 22 09/04/2021 CMP14 +4AC carbon dioxide, total 23 mmol/ L 20-29 Not Available [facility] ([facility] [place] [place] [facility] [address] [facility] [place], [address], 09/06/2021 16:11:58 09/04/19 22 09/04/2021 CMP14 +4AC calcium 10.1 mg/dL 8.7-10 .2 Not Available [facility] ([facility]) [address] [facility] [place], [address], 09/06/2021 16:11:58 09/04/19 22 09/04/2021 CMP14 +4AC phosphorus 3.6 mg/dL 3.0-4. 3 Not Available [facility] ([facility] [place] [facility] [address] [facility] [place], [address], 09/06/2021 16:11:58 09/04/19 22 09/04/2021 CMP14 +4AC protein, total 7.4 g/dL 6.0-8. 5 Not Available [facility] ([facility] [place] [facility] [address] [facility] [place], [address], 09/06/2021 16:11:58 06/14/20 22 09/04/2021 CMP14 +4AC albumin 5.1 g/dL 3.8-4. 9 above high normal Not Available [facility] ([facility] [place] [facility] [address] [place], [address], 09/06/2021 16:11:58 09/04/19 22 09/04/2021 CMP14 +4AC bilirubin, total 0.9 mg/dL 0.0-1. 2 Not Available [facility] ([facility] [address] [place], [address], 09/06/2021 16:11:58 09/04/19 22 09/04/2021 CMP14 +4AC alkaline phosphatase 116 IU/L 44-121 Not Available [facility] ([facility] [place] [place] [facility] [address] [place], [address], 09/06/2021 16:11:58 09/04/19 22 09/04/2021 CMP14 +4AC LDH 205 IU/L 119-22 6 Not Available [facility] ([facility] [address] [place], [address], 09/06/2021 16:11:58 09/04/19 22 09/04/2021 CMP14 +4AC AST (SGOT) 23 IU/L 0-40 Not Available [facility] ([facility] [address] [place], [address], 09/06/2021 16:11:58 09/04/19 22 09/04/2021 CMP14 +4AC ALT (SGPT) 30 IU/L 0-32 Not Available [facility] ([facility] [address] [place], [address], 09/06/2021 16:11:58 09/04/19 22 09/04/2021 CMP14 +4AC GGT 21 IU/L 0-60 Not Available [facility] ([facility] [address] [place], [address], 09/06/2021 16:11:58 09/04/19 22 09/04/2021 CMP14 +4AC cholesterol, total 160 mg/dL 100-19 9 Not Available [facility] ([facility] [place] [place] [facility] [address] [facility] [place], [address], 09/06/2021 16:11:58 09/04/19 22 09/04/2021 CBC WITH DIFFE RENTI AL/PL ATELE T MCV 84 fL 79-97 Not Available [facility] ([facility] [place] [place] [facility] [address] [facility] [place], [address], 09/06/2021 16:11:57 09/04/19 22 09/04/2021 CBC WITH DIFFE RENTI AL/PL ATELE T WBC 4.6 x10e3 /uL 3.4-10 .8 Not Available [facility] ([facility] [address] [facility], [place], [address], 09/06/2021 16:11:57 09/04/19 22 09/04/2021 CBC WITH DIFFE RENTI AL/PL ATELE T RBC 5.27 x10e6 /uL 3.77-5 .28 Not Available [facility] ([facility] [place] [facility] [address] [facility] [place], [address], 09/06/2021 16:11:57 09/04/19 22 09/04/2021 CBC WITH DIFFE RENTI AL/PL ATELE T hemoglobin 13.8 g/dL 11.1-1 5.9 Not Available [facility] ([facility] [address] [place], [address], 09/06/2021 16:11:57 09/04/19 22 09/04/2021 CBC WITH DIFFE RENTI AL/PL ATELE T hematocrit 44.1 % 34.0-4 6.6 Not Available [facility] ([facility] [address] [place], [address], 09/06/2021 16:11:57 09/04/19 22 09/04/2021 CBC WITH DIFFE RENTI AL/PL ATELE T MCH 26.2 pg 26.6-3 3.0 below low normal Not Available [facility] ([facility] [address] [place], [address], 09/06/2021 16:11:57 09/04/19 22 09/04/2021 CBC WITH DIFFE RENTI AL/PL ATELE T MCHC 31.3 g/dL 31.5-3 5.7 below low normal Not Available [facility] ([facility] [address] [place], [address], 09/06/2021 16:11:57 09/04/19 22 09/04/2021 CBC WITH DIFFE RENTI AL/PL ATELE T RDW 13.9 % 11.7-1 5.4 Not Available [facility] ([facility] [address] [place], [address], 09/06/2021 16:11:57 09/04/19 22 09/04/2021 CBC WITH DIFFE RENTI AL/PL ATELE T platelets 298 x10e3 /uL 150-45 0 Not Available [facility] ([facility] [address] [place], [address], 09/06/2021 16:11:57 09/04/19 22 09/04/2021 CBC WITH DIFFE RENTI AL/PL ATELE T neutrophils 62 % not estab. Not Available [facility] ([facility] [address] [place], [address], 09/06/2021 16:11:57 09/04/19 22 09/04/2021 CBC WITH DIFFE RENTI AL/PL ATELE T lymphs 30 % not estab. Not Available [facility] ([facility] [address] [place], [address], 09/06/2021 16:11:57 09/04/19 22 09/04/2021 CBC WITH DIFFE RENTI AL/PL ATELE T monocytes 7 % not estab. Not Available [facility] ([facility] [address] [place], [address], 09/06/2021 16:11:57 09/04/19 22 09/04/2021 CBC WITH DIFFE RENTI AL/PL ATELE T eos 1 % not estab. Not Available [facility] ([facility] [address] [place], [address], 09/06/2021 16:11:57 09/04/19 22 09/04/2021 CBC WITH DIFFE RENTI AL/PL ATELE T basos 0 % not estab. Not Available [facility] ([facility] [address] [place], [address], 09/06/2021 16:11:57 09/04/19 22 09/04/2021 CBC WITH DIFFE RENTI AL/PL ATELE T immature cells nonprofit financial controller Not Available [facility] ([facility] [address] [place], [address], 09/06/2021 16:11:57 09/04/19 22 09/04/2021 CBC WITH DIFFE RENTI AL/PL ATELE T neutrophils (absolute) 2.8 x10e3 /uL 1.4-7. 0 Not Available [facility] ([facility] [address] [place], [address], 09/06/2021 16:11:57 09/04/19 22 09/04/2021 CBC WITH DIFFE RENTI AL/PL ATELE T lymphs (absolute) 1.4 x10e3 /uL 0.7-3. 1 Not Available [facility] ([facility] [address] [place], [address], 09/06/2021 16:11:57 09/04/19 22 09/04/2021 CBC WITH DIFFE RENTI AL/PL ATELE T monocytes(ab solute) 0.3 x10e3 /uL 0.1-0. 9 Not Available [facility] ([facility]) [address] [facility], [place], [address], 09/06/2021 16:11:57 09/04/19 22 09/04/2021 CBC WITH DIFFE RENTI AL/PL ATELE T eos (absolute) 0.1 x10e3 /uL 0.0-0. 4 Not Available [facility] ([facility]) [address] [facility], [place], [address], 09/06/2021 16:11:57 09/04/19 22 09/04/2021 CBC WITH DIFFE RENTI AL/PL ATELE T baso (absolute) 0.0 x10e3 /uL 0.0-0. 2 Not Available [facility] ([facility] [address] [facility], [place], [address], 09/06/2021 16:11:57 09/04/19 22 09/04/2021 CBC WITH DIFFE RENTI AL/PL ATELE T immature granulocytes 0 % not estab. Not Available [facility] ([facility] [address] [facility], [place], [address], 09/06/2021 16:11:57 09/04/19 22 09/04/2021 CBC WITH DIFFE RENTI AL/PL ATELE T immature grans (abs) 0.0 x10e3 /uL 0.0-0. 1 Not Available [facility] ([facility] [address] [facility], [place], [address], 09/06/2021 16:11:57 09/04/19 22 09/04/2021 CBC WITH DIFFE RENTI AL/PL ATELE T NRBC nonprofit financial controller Not Available [facility] ([facility] [address] [facility], [place], [address], 09/06/2021 16:11:57 09/04/19 22 09/04/2021 CBC WITH DIFFE CHANDU AL/PL ATELE T hematology comments: nonprofit financial controller Not Available [facility] ([facility] [address] [facility], [place], [address], 09/06/2021 16:11:57 09/04/19 22 09/04/2021 TSH+F REE T4 TSH 1.590 uIU/m L 0.450- 4.500 Not Available [facility] ([facility] [address] [facility], [place], [address], 09/06/2021 16:11:57 09/04/19 22 09/04/2021 TSH+F REE T4 T4,free(dire ct) 1.40 NG/dL 0.82-1 .77 Not Available [facility] [place] [place] [facility] [address] [facility], [place], [address], 09/06/2021 16:11:57 09/10/19 22 09/11/2021 SPECI MEN STATU S REPOR T specimen status report tnp Pleas e refer to the follo wing speci men for addit ional lab resul ts. TEST: 12329 5 Sedim entat ion Rate- Antonella ren SEE-1 [id number] Not Available [facility] ([facility] [place] [place] [facility] [address] [facility], [place], [address], 09/13/2021 03:07:39 09/10/19 22 09/11/2021 C-LOUIE CTIVE PROTE IN, QUANT C-reactive protein, quant 2 mg/L 0-10 Not Available [facility] ([facility] [place] [place] [facility] [address] [place], [address], 09/13/2021 03:07:38 09/10/19 22 09/11/2021 ANTIN UCLEA R ANTIB ODIES DIREC T QUIANA direct negati ve negati ve Not Available [facility] ([facility] [place] [place] [facility] [address] [place], [address], 09/13/2021 03:07:38 09/10/19 22 09/12/2021 ANTI- CCP AB, IGG/I GA anti-ccp Ab, IgG/IgA 4 units 0-19 Negat jelly <20 Weak posit jelly 20 - 39 Moder ate posit jelly 40 - 59 Stron g posit jelly >59 Not Available [facility] ([facility] [place] [place] [facility] [address] [facility], [place], [address], 09/13/2021 03:07:37 09/10/19 22 09/11/2021 RHEUM ATOID FACTO R (RF) rheumatoid factor (rf) <10.0 IU/mL <14.0 Not Available [facility] [place] [place] [facility] [address] [facility], [place], [address], 09/13/2021 03:07:37 09/10/19 22 09/10/2021 SEDIM ENTAT ION RATE- WESTE RGREN sedimentatio n rate-westerg willis 10 mm/HR 0-30 Not Available [facility] (Surgery Scheduling) [address] [facility], [place], [address], 09/10/2021 16:11:16 09/11/19 22 09/09/2021 XR, foot No observ ation record ed. MIGRATION. [facility] [address], [place], [address], 05/21/2022 12:59:31 09/11/19 22 09/09/2021 XR, hand No observ ation record ed. MIGRATION. [facility] [address], [place], [address], 05/21/2022 12:59:31 09/13/19 22 04/03/2021 MAMMO , diagn ostic , digit al, bilat eral No observ ation record ed. MIGRATION. [facility] [address], [place], [address], 05/21/2022 12:59:31 10/08/19 22 10/07/2021 US, donavon t, heather ed No observ ation record ed. [id number] Not Available 05/21/2022 12:59:31 12/26/19 22 12/11/2021 home sleep study No observ ation record ed. MIGRATION. [facility] ([facility]) [address] [facility], [place], [address], 05/21/2022 12:59:31 02/25/20 22 02/21/2022 XR, chest , 2 view No observ ation record ed. [id number] [facility] [address] [facility], [place], [address], 05/21/2022 12:59:31 03/04/20 22 02/21/2022 PFT, compl ete No observ ation record ed. [id number] [facility] [address], [place], [address], 05/21/2022 12:59:31 07/09/19 23 04/09/2022 home sleep study No observ ation record ed. [email or web address] Not Available 07/09 10:49:13 07/09/19 23 04/09/2022 home sleep study No observ ation record ed. [email or web address] Not Available 2022 08:44:45 01/21/20 23 09/01/2022 MAMMO , scree raiza, digit al, bilat eral No observ ation record ed. [email or web address] [facility] [address], [place], [address], 01/20/2023 15:52:18 Result Notes None recorded. Problems Name Problem SNOMED Code Status Onset Date Resolution Date Notes Provider Name and Address Organization Details Recorded Time Mammograph ic mass of left breast 6459837093749 9103 Active 2021 Not Available [facility] 12:55:21 Mammograph y abnormal 324094583 Active 2021 Not Available [facility] 3 12:55:21 Gastroesop hageal reflux disease 075842577 Active 2021 Not Available [facility] 3 12:55:21 Dyspnea 196561770 Active 2021 Not Available [facility] 3 12:55:21 Thoracic back pain 782327981 Active 2021 Not Available [facility] 3 12:55:22 Knee pain Active Not Available [facility] 3 12:55:22 Type 2 diabetes mellitus without complicati on 416027894 Active 2022 Not Available [facility] 3 12:55:22 Pain of multiple joints 07465531 Active 2021 Not Available [facility] 3 12:55:22 Osteoarthr itis 494313749 Active 2021 Not Available [facility] 3 12:55:22 Hypothyroi dism 89264874 Active 2019 Not Available [facility] 3 12:55:22 Thoracic radiculopa thy 39757894 Active 2021 Not Available [facility] 3 12:55:22 Well controlled type 2 diabetes mellitus 189192040 Active 2021 Not Available [facility] 3 12:55:22 Pain of hip region 86070732 Active Not Available [facility] 3 12:55:22 Hyperlipid emia 39935435 Active 2018 Not Available [facility] 3 12:55:22 Obstructiv e sleep apnea syndrome 64851207 Active 2021 VIRA Vo, [place] [facility] 3 08:33:41 Impaired glucose tolerance 5559459 Active 2019 Not Available [facility] 3 12:55:22 Gastroesop hageal reflux disease without esophagiti s 149100321 Active 2022 MATTI Trujillo [address] [place] [address], [place] [address], [place], [address] , [facility] [employer] [facility] 3 08:39:39 Cough 59408288 Active 2022 MATTI Trujillo [address], [place], [address] , [facility] [employer] [facility] 3 15:53:29 Notes:Some problems listed i n Document: #[id number] could not be added to this patient's chart. Please review this document and add these problems to the patient's chart manually as needed. Problem Notes None recorded. Procedures Surgical History Date Name Laterality Status Provider Name and Address Organization Details Recorded Time 03/09/20 19 Carpal tunnel completed Not Available [facility] 05/21/2022 12:53:08 09/21/19 17 Date of Last Colonoscopy completed Not Available [facility] 05/21/2022 12:53:07 repair of meniscus completed Not Available [facility] 05/21/2022 12:53:08 reconstruction of anterior cruciate ligament of knee joint completed Not Available [facility] 05/21/2022 12:53:08 excision of lipoma completed Not Available [facility] 05/21/2022 12:53:08 Hysterectomy completed Not Available [facility] 05/21/2022 12:53:08 removal of sebaceous cyst completed Not Available [facility] 05/21/2022 12:53:08 Imaging Results None recorded. Procedure Notes None recorded. Medical Equipment None Reported. Allergies Allergen ID Allergen Name Allergen Category Reaction Reaction Severity Criticality Documentation Date Start Date Code Code System Note Provider Name and Address Organization Details Recorded Time 90478 Cipro medicatio n Not available Not available Not available 05/21/202240727 3 RxNorm Not Available [facility] 12:59:19 Medications Name Sig Start Date Stop Date Status Note LastModified by Organization Details LastModified Time cyclobenzap rine 10 mg tablet Take 1 tablet 3 times a day by oral route as needed. active Not Available Not Available No t Available amoxicillin 500 mg capsule TAKE 1 CAPSULE BY MOUTH THREE TIMES A DAY FOR 10 DAYS 01/06 completed Not Available Not Available Not Available atorvastati n 40 mg tablet TK 1 T PO QD 02/21 completed Not Available Not Available Not Available metformin 500 mg tablet 02/11 completed Not Available Not Available Not Available prednisone 10 mg tablet 02/11 completed Not Available Not Available Not Available azithromyci n 250 mg tablet 02/11 completed Not Available Not Available Not Available benzonatate 200 mg capsule TAKE 1 CAPSULE BY MOUTH THREE TIMES A DAY NEEDED active Not Available Not Available No t Available valacyclovi r 1 gram tablet TK 1 T PO TID 02/11 completed Not Available Not Available Not Available hydrocodone 5 mg-acetamin ophen 325 mg tablet TAKE 1 TO 2 TABLETS BY MOUTH EVERY 6 HOURS NEEDED FOR PAIN active Not Available Not Available No t Available phenazopyri dine 200 mg tablet 02/11 completed Not Available Not Available Not Available Prilosec 20 mg capsule,del ayed release Take 2 capsules every day by oral route. 2022 active Not Available Not Available Not Avai lable ciprofloxac in 500 mg tablet 02/21 completed Not Available Not Available Not Available sulfamethox azole 800 mg-trimetho prim 160 mg tablet 02/21 completed Not Available Not Available Not Available peg-electro lyte solution 420 gram oral solution MIX AND DRINK UTD 02/11 completed Not Available Not Available Not Available lidocaine-p rilocaine 2.5 %-2.5 % topical cream 02/11 completed Not Available Not Available Not Available meloxicam 7.5 mg tablet TAKE 1 TABLET BY MOUTH TWICE A DAY active Not Available Not Available No t Available alprazolam 0.5 mg tablet 02/11 completed Not Available Not Available Not Available amoxicillin 875 mg tablet Take 1 tablet every 12 hours by oral route. active Not Available Not Available No t Available methocarbam ol 750 mg tablet Take 1 tablet 3 times a day by oral route as needed. active Not Available Not Available No t Available Kenalog 10 mg/mL suspension for injection In office injection administe red by the provider 07/03 completed [facility]: 0003- 0494- 20 Not Available Not Available Not Available hydrocodone 7.5 mg-acetamin ophen 325 mg tablet 02/11 completed Not Available Not Available Not Available lidocaine 5 % topical patch 02/11 completed Not Available Not Available Not Available Synthroid 75 mcg tablet TAKE 1 TABLET BY MOUTH EVERY DAY IN THE MORNING active Not Available Not Available No t Available diclofenac sodium 75 mg tablet,rao yed release TAKE 1 TABLET BY MOUTH TWICE DAILY WITH FOOD active Not Available Not Available No t Available codeine 10 mg-guaifene sin 100 mg/5 mL oral liquid Take 10 mL every 4-6 hours by oral route as needed. active Not Available Not Available No t Available Aspir-81 mg tablet,rao yed release Take 1 tablet every day by oral route in the evening. 09/09 completed Not Available Not Available Not Available ibuprofen 600 mg tablet active Not Available Not Available Not Available levofloxaci n 500 mg tablet TK 1 T PO Q 24 H 02/11 completed Not Available Not Available Not Available zolpidem 10 mg tablet take one tab po prior to sleep study testing in lab. active Not Available Not Available No t Available methylpredn isolone 4 mg tablets in a dose pack TAKE 6 TABLETS ON DAY 1 DIRECTED ON PACKAGE AND DECREASE BY 1 TAB EACH DAY FOR A TOTAL OF 6 DAYS 09/06 completed Not Available Not Available Not Available metformin ER 500 mg tablet,exte nded release 24 hr TAKE 2 TABLETS BY MOUTH EVERY DAY active Not Available Not Available No t Available naproxen 500 mg tablet 02/11 completed Not Available Not Available Not Available amoxicillin 875 mg-potassiu m clavulanate 125 mg tablet 07/03 completed Not Available Not Available Not Available bacitracin- polymyxin B 500 unit-10,000 unit/gram eye ointment apply to lid margins of left eye tid active Not Available Not Available No t Available metformin ER 750 mg tablet,exte nded release 24 hr Take 1 tablet every day by oral route at dinner. 11/29 completed Not Available Not Available Not Available rosuvastati n 10 mg tablet TAKE 1 TABLET BY MOUTH EVERY DAY active Not Available Not Available No t Available rosuvastati n 20 mg tablet Take by oral route. 02/21 completed Not Available Not Available Not Available nitrofurant oin monohydrate /macrocryst als 100 mg capsule TAKE 1 CAPSULE BY MOUTH EVERY 12 HOURS 07/03 completed Not Available Not Available Not Available Aspir-81 12/20 completed Not Available Not Available Not Available Prilosec 04/09 completed Not Available Not Available Not Available lidocaine (PF) 10 mg/mL (1 %) injection solution In office injection administe red by the provider 07/03 completed [facility]: 0409- 4276- 17 Not Available Not Available Not Available metformin ER 500 mg 24 hr tablet,exte nded release (gastric retention) Take 2 tablets every day by oral route at dinner. 04/02 completed Not Available Not Available Not Available Lotemax 0.5 % eye gel drops 02/11 completed Not Available Not Available Not Available Trulicity 1.5 mg/0.5 mL subcutaneou s pen injector INJECT 1.5 MG EVERY WEEK BY SUBCUTANE OUS ROUTE DIRECTED. active Not Available Not Available No t Available Trulicity 0.75 mg/0.5 mL subcutaneou s pen injector INJECT 0.75 MG EVERY WEEK BY SUBCUTANE OUS ROUTE DIRECTED. 01/07 completed Not Available Not Available Not Available Linzess 72 mcg capsule TAKE ONE C BY MOUTH DAILY 02/11 completed Not Available Not Available Not Available Alive Women's 50 Plus (blend) one daily 2018 active Not Available Not Available Not Avai lable Trulicity 3 mg/0.5 mL subcutaneou s pen injector Inject 3 mg every week by subcutane ous route as directed. active Not Available Not Available No t Available Vitals Date Recorded Body mass index (BMI) Body height Oxygen saturation Oxygen saturation in Arterial blood by Pulse oximetry Heart rate Respiratory rate Body temperature Body weight Systolic blood pressure Diastolic blood pressure Provider Name and Address Organization Details Last Updated DateTime 3 34.2 kg/m2 162.56 cm 96 % 96 % 88 /min 16 /min 97.8 [degF] 46225.8 8 g 132 mm[Hg] 88 mm[Hg] Not Available [facility] 3 12:54:01 Date Recorded Body height Body mass index (BMI) Body weight Respiratory rate Body temperature Heart rate Heart rate Systolic blood pressure Diastolic blood pressure Provider Name and Address Organization Details Last Updated DateTime 3 162.56 cm 32.3 kg/m2 27461.3 7 g 16 /min 97.8 [degF] 96 /min 91 /min 120 mm[Hg] 80 mm[Hg] VIRA Vo [place] [facility] 3 08:40:06 Date Recorded Body mass index (BMI) Body height Oxygen saturation Oxygen saturation in Arterial blood by Pulse oximetry Heart rate Respiratory rate Body temperature Body weight Systolic blood pressure Diastolic blood pressure Provider Name and Address Organization Details Last Updated DateTime 2 34.4 kg/m2 162.56 cm 98 % 98 % 96 /min 16 /min 97.2 [degF] 83439.6 3 g 138 mm[Hg] 88 mm[Hg] Not Available [facility] 3 12:54:00 Date Recorded Body mass index (BMI) Body height Oxygen saturation Oxygen saturation in Arterial blood by Pulse oximetry Heart rate Respiratory rate Body temperature Body weight Systolic blood pressure Diastolic blood pressure Provider Name and Address Organization Details Last Updated DateTime 2 34.6 kg/m2 162.56 cm 98 % 98 % 96 /min 16 /min 97.7 [degF] 45382.2 2 g 128 mm[Hg] 72 mm[Hg] Not Available [facility] 3 12:54:00 Date Recorded Systolic blood pressure Diastolic blood pressure Provider Name and Address Organization Details Last Updated DateTime 01/07/2023 130 mm[Hg] 80 mm[Hg] MATTI Trujillo [address] [place] [address], [address], [email or web address] [facility] 01/07/2023 08:54:42 Date Recorded Body height Body temperature Body mass index (BMI) Body weight Respiratory rate Oxygen saturation Oxygen saturation in Arterial blood by Pulse oximetry Heart rate Systolic blood pressure Diastolic blood pressure Provider Name and Address Organization Details Last Updated DateTime 3 162.56 cm 97.3 [degF] 31.6 kg/m2 53600 g 16 /min 96 % 96 % 86 /min 132 mm[Hg] 82 mm[Hg] VIRA Vo [place] [email or web address] [facility] [employer] [facility] 3 08:36:30 Social History Question Answer Notes LastModified by Organizat ion Details LastModified Time Tobacco Smoking Status Never Smoker Not Available [facility] 05/21/2022 12:52:52 What Is Your Level Of Caffeine Consumption? Moderate [id number] Information not available 05/21/2022 How Much Tobacco Do You Chew? None [id number] Information not available 05/21/2022 In The 14 Days Before Symptom Onset, Have You Had Close Contact With A Laboratory-confirm ed COVID-19 While That Case Was Ill? No [id number] Information not available 05/21/2022 In The 14 Days Before Symptom Onset, Have You Had Close Contact With A Person Who Is Under Investigation For COVID-19 While That Person Was Ill? No [id number] Information not available 05/21/2022 What Type Of Diet Are You Following? REGULAR [id number] 1351 Information not available 05/21/2022 Which Illicit Or Recreational Drugs Have You Used? None MIGRATION.[id number] Information not available 05/21/2022 Have There Been Any Changes To Your Family Or Social Situation? No MIGRATION.[id number] Information not available 05/21/2022 Do You Use Insect Repellent Routinely? No MIGRATION.[id number] Information not available 05/21/2022 What Is Your Relationship Status? MIGRATION.[id number] 3357 Information not available 05/21/2022 Do You Use Your Seat Belt Or Car Seat Routinely? Yes MIGRATION.[id number] [id number] Information not available 05/21/2022 Do You Have Smoke And Carbon Monoxide Detectors In Your Home? Yes MIGRATION.[id number] 4856 Information not available 05/21/2022 How Much Tobacco Do You Smoke? No MIGRATION.[id number] 9258 Information not available 05/21/2022 Do You Use Sunscreen Routinely? Yes MIGRATION.[id number] 8603 Information not available 05/21/2022 Have You Recently Traveled Abroad? No MIGRATION.003493 0411 Information not available 05/21/2022 Do You Have Any Dietary Restrictions? No MIGRATION.930803 0763 Information not available 05/21/2022 Sex: Unknown Functional Status Question Answer Note LastModified by Organizat ion Details LastModified Time Do you use any illicit or recreational drugs? No MIGRATION.[id number] Information not available 05/21/2022 Do you or have you ever used any other forms of tobacco or nicotine? No MIGRATION.[id number] 8926 Information not available 05/21/2022 What is your level of alcohol consumption? Occasional MIGRATION.[id number] 6682 Information not available 05/21/2022 Do you or have you ever used smokeless tobacco? Never used smokeless tobacco MIGRATION.[id number] 6020 Information not available 05/21/2022 Do you or have you ever used e-cigarettes or vape? Never used electronic cigarettes MIGRATION.[id number] [id number] Information not available 05/21/2022 What is your exercise level? Occasional MIGRATION.[id number] 8986 Information not available 05/21/2022 Mental Status None recorded. Family History Relationship Description Onset Age of this Age Resolved Age Notes LastModified by Organization Details LastModified Time Mother Malignant tumor of colon [id number] Not available 05/21/2022 12:53:09 Mother Heart disease MIGRATION.493 [id number] Not available 05/21/2022 12:53:09 Mother Cerebrovascu lar accident MIGRATION.777 [id number] Not available 05/21/2022 12:53:09 Father Heart disease MIGRATION.572 [id number] Not available 05/21/2022 12:53:09 Father Myocardial infarction MIGRATION.085 [id number] Not available 05/21/2022 12:53:09 Father Cerebrovascu lar accident MIGRATION.873 [id number] Not available 05/21/2022 12:53:09 Father Diabetes mellitus MIGRATION.246 [id number] Not available 05/21/2022 12:53:09 Father Malignant neoplasm of lung MIGRATION.602 [id number] Not available 05/21/2022 12:53:09 Father Malignant tumor of kidney MIGRATION.134 [id number] Not available 05/21/2022 12:53:09 Brother Heart disease MIGRATION.012 [id number] Not available 05/21/2022 12:53:09 Brother Malignant tumor of colon MIGRATION.181 [id number] Not available 05/21/2022 12:53:09 Brother Myocardial infarction MIGRATION.743 [id number] Not available 05/21/2022 12:53:09 Brother Diabetes mellitus MIGRATION.797 [id number] Not available 05/21/2022 12:53:09 Sister Heart disease MIGRATION.650 [id number] Not available 05/21/2022 12:53:09 Sister Myocardial infarction MIGRATION.713 [id number] Not available 05/21/2022 12:53:09 Medical History Condition Response HIGH CHOLESTEROL / HYPERLIPIDEMIA Y Gynecological History Statement/Question Response Menses Monthly N Date of Last Pap 07/21/2017 Date of Last Mammogram 09/30/2018 Current Control Method Hysterectom y Date of Last Colonoscopy 09/20/2016 Most Recent Bone Density Sexually Active? Y Obstetrics History GPAL:G 2 P 0 0 0 2 Type Value Living 2 Total 2 Immunizations Vaccine Type Date Status Note Provider Jomar richardson and Address Organization Details Recorded Time Tdap 11/26/2018 completed Not Available [facility] 05/21/2022 12:59:12 Past Encounters Encounter ID Performer Location Encounter Start Date Encounter Closed Date Diagnosis/Indication Diagnosis SNOMED-CT Code Diagnosis ICD10 Code Diagnosis Note [id number] MATTI Trujillo [facility] [address] [place] [address] 07/03/2020 00:00:00 07/20/2020 15:19:35 [id number] MATTI Trujillo [facility] [address] [place] [address] 10/09/2020 00:00:00 10/19/2020 19:27:11 [id number] Karthik Ramirez MD [facility] [address] [place] [address] 09/09/2021 00:00:00 09/19/2021 08:22:42 [id number] Karthik Ramirez MD [facility] [address] [place] [address] 11/06/2021 00:00:00 11/17/2021 21:10:40 [id number] MATTI Trujillo [facility] [address] [place] [address] 04/09/2022 00:00:00 04/22/2022 20:45:59 [id number] MATTI Trujillo [facility] [address] [place] [address] 07/09/2022 08:32:04 07/09/2022 09:13:56 Well controlled type 2 diabetes mellitus 209405782 E11.9 5.9% a1c. continue trulicity at 1.5mg weekly dosing. repeat labs in dec. Hypothyroidism 94095478 E03.9 stable on supplement synthroid 75mcg daily. repeat labs in dec Hyperlipidemia 21678682 E78.5 stable, great labs on low dose crestor 10mg daily. repeat labs in dec. Long-term drug therapy 194271047 Z79.284 [id number] MATTI Trujillo [facility] [address] [place] [address] 01/07/2023 08:30:05 01/07/2023 09:01:34 Well controlled type 2 diabetes mellitus 073433294 E11.9 6% a1c. boost to trulicity 3mg weekly sq. repeat labs in june. Hypothyroidism 57721798 E03.9 stable on supplement synthroid 75mcg daily. repeat labs due in June. Hyperlipidemia 73748353 E78.5 stable, great labs on low dose crestor 10mg daily. repeat labs in june. Long-term drug therapy 118130112 Z79.899 next f/u labs due in june. Gastroesop hageal reflux disease without esophagitis 435504402 K21.9 stable on PPI therapy Obstructiv e sleep apnea syndrome 19302847 G47.33 great management on cpap. Family his tory of cancer of colon 366775828 Z80.0 refer for colonoscop y Adult heal th examination 997060184 Z00.01 annual wellness appt completed Health Concerns Section Related Observation LastModified by Organization Detai ls LastModified Time None Recorded Concern Status LastModified by Organization Details LastModified Time None Recorded Advance Directives Directive None Recorded Payers Encounter Date Sequence Insurance Name Policy Number Policy Martinez Covered Member ID Martinez Member ID Guarantor Name 07/09/2022 1 [employer] [id number] Karthik [place] [id number] Heidi Maierwlett 01/07/2023 1 [employer] [id number] Karthik [place] [id number] Heidi Maierwlett Notes Date Note Type Note Provider Name and Address Organization Details Recorded Time 09/10/19 22 text/htm l DiabetesReported bypatient.Duration:chronic Control:usually well controlled; treated with diet and oral medications Compliance:compliant with medications; compliant with follow-up visits; compliant with diet; compliant with home glucose monitoring Self Care:monitoring glucose daily Context:checking feet regularly;not seeing eye doctor yearly;not taking aspirin daily Associated Symptoms:no weight gain; no weight loss; no dizziness; no headaches; no confusion; no increased appetite; no blurred vision; no numbness of feet; no calluses on feet; no fatigue; no blurred vision; no paresthesias;sweats;increased thirst;increased urination Chronic Complications:hyperlipidemia: YesHyperlipidemiaReported bypatient.Duration:chronic Control:usually well controlled Current Therapy:currently taking: (rosuvastatin 10mg) Compliance:exercises;noncompl iant;noncompliant with diet Complications:no coronary artery disease; no peripheral artery disease; no cardiovascular disease Risk Factors:diabetesHypothyroidis mReported bypatient.Quality:not changing Duration:constant Onset/Timing:still present Context/Risk:normal thyroid levels; no history of head or neck radiation during childhood; no history of thyroid disease; no history of hyperthyroidism; no excess iron exposure;history of hypothyroidism;female gender Modifying Factors:medication Exerciseno exercise Associated Symptoms:no cold intolerance; no heat intolerance; no weight loss; no weight gain; no double vision; no dry eyes; no hoarseness; no difficulty swallowing; no neck masses; no deepening of the voice; no fast heart rate; no increased blood pressure; no palpitations; no chest pain; no chest tightess or pressure; no constipation; no diarrhea; no vomiting; no decreased appetite; no loose stools; no irregular menstrual periods; no excessive sweating; no joint pain; no numbness; no tingling of the hands or feet; no dry skin; no tremor; no nervousness; no anxiety; no depression; no sleep difficulties; no skin changes; no hair changes;fatigueReflux/GERDRep orted bypatient.Symptomsasymptomati c; no difficulty swallowing; no pain swallowing; no postprandial pain Severity:same Duration:present 5 or more years Onset/Timing:gone now Context:non-smoker; no drug/alcohol abuse; no drug alcohol withdrawal; not related to food/drink 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 Aggravating Factors:worsened by food Associated Symptoms:no frequent coughing; no hoarseness; no food getting stuck; no belching/burping; no vomiting; not vomiting blood; no regurgitation; no shortness of breath; no chest pain; no heartburn; no difficulty swallowing; no pain when swallowing; no bad taste; no decreased appetite; no weight loss; no black/tarry stools; no fatigue; no throat pain; no dental erosion; no bloating; no early satiety; no halitosis Not Available Personeta 09/19/2021 08:22:42 11/07/19 22 text/htm l Generic HPI TemplateReported bypatient.Notes:Pt present for follow up on labs and Meloxicam. Joint pain appears to be improving, however, tender today due to a busy and stressful evening last noc. Not Available Personeta 11/17/2021 21:10:40 04/09/19 23 text/htm l DiabetesReported bypatient.Duration:chronic Control:usually well controlled; treated with diet and oral medications Compliance:compliant with medications; compliant with follow-up visits; compliant with home glucose monitoring;noncompliant with diet Self Care:monitoring glucose daily Context:seeing eye doctor regularly; checking feet regularly;not taking aspirin daily Associated Symptoms:no weight gain; no weight loss; no sweats; no headaches; no confusion; no increased appetite; no increased urination; no blurred vision; no numbness of feet; no calluses on feet; no fatigue; no blurred vision; no paresthesias;dizziness;increa sed thirst Chronic Complications:hypertension: Yes; hyperlipidemia: YesHyperlipidemiaReported bypatient.Duration:chronic Control:usually well controlled Current Therapy:currently taking: (rosuvastatin 10mg) Compliance:compliant; compliant with diet;does not exercise Complications:no coronary artery disease; no peripheral artery disease; no cardiovascular disease Risk Factors:diabetes;hypertension HypothyroidismReported bypatient.Quality:not changing Duration:constant Onset/Timing:still present Context/Risk:normal thyroid levels; no history of head or neck radiation during childhood; no history of thyroid disease; no history of hyperthyroidism; no excess iron exposure;history of hypothyroidism;female gender Modifying Factors:medication Exerciseno exercise Associated Symptoms:no cold intolerance; no heat intolerance; no weight loss; no weight gain; no double vision; no dry eyes; no hoarseness; no difficulty swallowing; no neck masses; no deepening of the voice; no fast heart rate; no increased blood pressure; no palpitations; no chest pain; no chest tightess or pressure; no constipation; no diarrhea; no vomiting; no decreased appetite; no loose stools; no irregular menstrual periods; no excessive sweating; no joint pain; no numbness; no tingling of the hands or feet; no dry skin; no tremor; no nervousness; no anxiety; no depression; no sleep difficulties; no skin changes; no hair changes;fatigueReflux/GERDRep orted bypatient.Symptomsasymptomati c; no difficulty swallowing; no pain swallowing; no postprandial pain Severity:same Duration:present 5 or more years Onset/Timing:gone now Context:non-smoker; no drug/alcohol abuse; no drug alcohol withdrawal; not related to food/drink 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 Associated Symptoms:no frequent coughing; no hoarseness; no food getting stuck; no belching/burping; no vomiting; not vomiting blood; no regurgitation; no shortness of breath; no chest pain; no heartburn; no difficulty swallowing; no pain when swallowing; no bad taste; no decreased appetite; no weight loss; no black/tarry stools; no fatigue; no throat pain; no dental erosion; no bloating; no early satiety; no halitosis Not Available Sudiksha [facility] 04/22/2022 20:45:59 07/10/19 23 text/htm l DiabetesReported bypatient.Duration:chronic Control:usually well controlled Compliance:compliant with medications; compliant with follow-up visits; compliant with diet; compliant with home glucose monitoring;has not had eye doctor visit in last year;has not had dietitian visit in last year;does not wear a medic alert bracelet or necklace;does not keep rapid-acting carbohydrate in car Self Care:monitoring glucose daily Context:normal range of home blood sugars (in the low 100s); seeing eye doctor regularly; checking feet regularly;not taking aspirin daily Associated Symptoms:no weight gain; no weight loss; no dizziness; no headaches; no confusion; no increased thirst; no increased appetite; no increased urination; no blurred vision; no numbness of feet; no calluses on feet; no coronary artery disease; no kidney disease; no peripheral vascular disease; no diabetic retinopathy; no diabetic neuropathy;sweatsHyperlipidem iaReported bypatient.Duration:chronic Control:usually well controlled; improving; at goal Current Therapy:currently taking: (rosuvastatin) Compliance:compliant; compliant with diet; exercises Complications:no coronary artery disease; no peripheral artery disease; no cardiovascular disease Risk Factors:diabetes;hypertension HypothyroidismReported bypatient.Quality:not changing Duration:constant Onset/Timing:still present Context/Risk:normal thyroid levels; no history of head or neck radiation during childhood; no history of thyroid disease; no history of hypothyroidism; no history of hyperthyroidism; no excess iron exposure;history of hypothyroidism;female gender Modifying Factors:medication Exercisegets exercise Associated Symptoms:no cold intolerance; no heat intolerance; no weight loss; no weight gain; no double vision; no dry eyes; no hoarseness; no difficulty swallowing; no neck masses; no deepening of the voice; no fast heart rate; no increased blood pressure; no palpitations; no chest pain; no chest tightess or pressure; no constipation; no diarrhea; no vomiting; no decreased appetite; no loose stools; no irregular menstrual periods; no excessive sweating; no joint pain; no numbness; no tingling of the hands or feet; no dry skin; no tremor; no nervousness; no anxiety; no depression; no fatigue; no sleep difficulties; no skin changes; no hair changesObstructive Sleep Apnea F/UReported bypatient.Quality:no loud snoring; no gasping for air; no witnessed apnea; no hyponasal speech; no frequent breathing through the mouth; no change since last visit Onset/Timing:chronic Duration:continuous Severity:does not limit daily activities; no frequent sore throats resulting in excess missed days from school / work per year; no awakening in the middle of the night with sore throat;difficulty getting going in the morning Location:no enlarged tonsils; no nasal passage blockage; no throat pain; no feeling of tightness in throat; no chest congestion;dryness of mouth Context:no lack of adequate sleep; no shift work; not currently taking medication to help sleep; no recent weight gain; no recent upper respiratory infection; no recent sick contacts; not worse with environmental exposure; not worse with seasonal allergen exposure; no hypertension; normal sleep hours Alleviating factors:relief with CPAP Aggravating factors:not worse during an upper respiratory infection (a cold); not worse when allergies are active Associated Symptoms:no morning headache; no awakening at night short of breath; no sweating heavily at night; no excessive sleepiness during the day; no suddenly falling asleep during the day; no napping; no impaired work performace; no nasal congestionNotes:sleep study completedReflux/GERDReported bypatient.Severity:same Onset/Timing:continuous Context:non-smoker; no drug/alcohol abuse; no drug alcohol withdrawal; not related to food/drink Alleviating Factors:medication Associated Symptoms:no frequent coughing; no feeling of fullness/mass in throat; no hoarseness; no food getting stuck; no belching/burping; no vomiting; not vomiting blood; no regurgitation; no shortness of breath; no chest pain; no heartburn; no difficulty swallowing; no pain when swallowing; no bad taste; no decreased appetite; no weight loss; no black/tarry stools; no fatigue; no throat pain MATTI Trujillo [address] [address], [place], [address], [place] - [facility] [employer] 07/18/2022 13:25:33 01/08/20 23 text/htm l DiabetesReported bypatient.Duration:chronic Control:usually well controlled Compliance:compliant with medications; compliant with follow-up visits; compliant with diet; compliant with home glucose monitoring;has not had eye doctor visit in last year;has not had dietitian visit in last year;does not wear a medic alert bracelet or necklace;does not keep rapid-acting carbohydrate in car Self Care:monitoring glucose daily Context:normal range of home blood sugars (in the low 100s); seeing eye doctor regularly; checking feet regularly;not taking aspirin daily Associated Symptoms:no weight gain; no weight loss; no dizziness; no headaches; no confusion; no increased thirst; no increased appetite; no increased urination; no blurred vision; no numbness of feet; no calluses on feet; no coronary artery disease; no kidney disease; no peripheral vascular disease; no diabetic retinopathy; no diabetic neuropathy;sweatsHyperlipidem iaReported bypatient.Duration:chronic Control:usually well controlled Compliance:compliant; compliant with diet;does not exercise Complications:no coronary artery disease; no peripheral artery disease; no cardiovascular disease Risk Factors:diabetes;hypertension HypothyroidismReported bypatient.Quality:not changing Duration:constant Onset/Timing:still present Context/Risk:normal thyroid levels; no history of head or neck radiation during childhood; no history of thyroid disease; no history of hyperthyroidism; no excess iron exposure;history of hypothyroidism;female gender Modifying Factors:medication Exercisegets exercise Associated Symptoms:no cold intolerance; no heat intolerance; no weight loss; no weight gain; no double vision; no dry eyes; no hoarseness; no difficulty swallowing; no neck masses; no deepening of the voice; no fast heart rate; no increased blood pressure; no palpitations; no chest pain; no chest tightess or pressure; no constipation; no diarrhea; no vomiting; no decreased appetite; no loose stools; no irregular menstrual periods; no excessive sweating; no joint pain; no numbness; no tingling of the hands or feet; no dry skin; no tremor; no nervousness; no anxiety; no depression; no fatigue; no sleep difficulties; no skin changes; no hair changesObstructive Sleep Apnea F/UReported bypatient.Quality:no loud snoring; no gasping for air; no witnessed apnea; no hyponasal speech; no frequent breathing through the mouth Onset/Timing:chronic Duration:continuous Severity:does not limit daily activities; no frequent sore throats resulting in excess missed days from school / work per year; no difficulty getting going in the morning; no awakening in the middle of the night with sore throat Location:no enlarged tonsils; no nasal passage blockage; no throat pain; no feeling of tightness in throat; no dryness of mouth; no chest congestion Context:no lack of adequate sleep; no shift work; not currently taking medication to help sleep; no recent weight gain; no recent upper respiratory infection; no recent sick contacts; not worse with environmental exposure; not worse with seasonal allergen exposure; no hypertension; normal sleep hours Alleviating factors:relief with CPAP Aggravating factors:not worse during an upper respiratory infection (a cold); not worse when allergies are active Associated Symptoms:no morning headache; no awakening at night short of breath; no sweating heavily at night; no excessive sleepiness during the day; no suddenly falling asleep during the day; no napping; no impaired work performace; no nasal congestionReflux/GERDReported bypatient.Severity:same Duration:present 5 or more years Onset/Timing:continuous Context:non-smoker; no drug/alcohol abuse; no drug alcohol withdrawal; not related to food/drink Alleviating Factors:medication Associated Symptoms:no frequent coughing; no feeling of fullness/mass in throat; no hoarseness; no food getting stuck; no belching/burping; no vomiting; not vomiting blood; no regurgitation; no shortness of breath; no chest pain; no heartburn; no difficulty swallowing; no pain when swallowing; no bad taste; no decreased appetite; no weight loss; no black/tarry stools; no fatigue; no throat pain well check MATTI Trujillo [address] [facility], [address], [address], [place] - [facility] 01/08/2023 18:19:14 OBGyn Episode No OBEpisode recorded.
--- OUTSIDE RECORDS SUMMARY | 2024-08-23 07:26 | XMS_ITS | Encounter Summary ---
Author Organization [facility] Address [address] [address] Care Team Providers Care Theatre Manager Name Role Phone Sukhjinder Chacon MD Primary Care Provider [phone] Encounter Details Date Type Department Care Team (Late st Contact Info) Description 09/10/2021 Lab Requisition [facility] [address] [place] [address] Zohreh Griffith PA [address] [place] [address] Social History Tobacco Use Types Packs/Day Years [...] on file documented as of this encounter Functional Status * Is person deaf or have serious hearing difficulty? Answer Date of Assessment Author No 10/07/2017 1:10 PM CDT Makenzie Fernandez RN * Is person blind or have serious difficulty seeing? Answer Date of Assessment Author No 10/07/2017 1:10 PM CDT Makenzie Fernandez RN * Does person have serious difficulty walking/climbing stairs? Answer Date of Assessment Author No 10/07/2017 1:10 PM CDT Makenzie Fernandez RN * Does person have difficulty dressing/bathing? Answer Date of Assessment Author No 10/07/2017 1:10 PM CDT Makenzie Fernandez RN * Does person have difficulty doing errands alone? Answer Date of Assessment Author No 10/07/2017 1:10 PM CDT Makenzie Fernandez RN documented as of this encounter Mental Status * Does person have difficulty concentrating/remembering/making decisions? Answer Entry Date Author No 10/07/2017 1:10 PM CDT Makenzie Fernandez RN documented in this encounter Plan of Treatment Not on file documented as of this encounter Procedures Procedure Name Priority Date/Time Associated Diagnosis Comments ERYTHROCYTE SEDIMENTATION RATE STAT 09/10/2021 1:24 PM CDT documented in this encounter Results * ERYTHROCYTE SEDIMENTATION RATE (09/10/2021 1:24 PM CDT) Erythrocyte Sedimentation Rate Automated 10 0 - 30 MM/HR 09/10/2021 1:43 PM CDT [facility] Blood BLOOD SPECIMEN / Unknown Venipuncture / Unknown 09/10/2021 1:24 PM CDT 09/10/2021 1:23 PM CDT us [facility] - HEMATOLOGY ORDERABLES Final Result Performing Organization Address City/State/[facility] Co de Phone Number [facility] [address] [place], [place] [id number] documented in this encounter Visit Diagnoses Not on filedocumented in this encounter Care Teams Theatre Manager Relationship Specialty Start Date End Date Sukhjinder Chacon MD [address] [place] [address] PCP - General Internal Medicine 09/24/17 documented as of this encounter
--- OUTSIDE RECORDS SUMMARY | 2024-08-23 07:26 | XMS_ITS | Continuity of Care Document ---
Author Organization [facility] Address [address] [place] [address] [address] [place] [address] Phone Care Team Providers Care Mergers And Acquisitions Attorney Name Role Phone Matthew Márquez DO Unavailable Unavailable Advance Directives Directive Yes / No Effective Date File Name No Information Encounters Encounter Description Practice Location Reason(s) For Visit Diagnoses Date Provider Providers Copied on Encounter [facility], [id number] [place] [address] [address], [place], [place], [id number], [place] tel:[phone] [facility] No Information Willi Flynn. [address] [place], [address], [place]. tel: [phone] Family History Family Member Type Diagnosis Age At Onset No Information Payers Payer name Insurance type Covered alliance party ID Authoriza tion(s) No Information Social History Type Description Quantity Date Captured Comments Sex Female Smoking Status No Information Chief Complaint And Reason For Visit No Information Reason For Referral Reason For Referral No Information History Of Present Illness Encounter Date Complaint History Of Prese nt Illness No Information Functional Status Date Functional Assessmen t No Information Instructions Date Instruction Additional Infor mation No Information Assessments Type Assessment Date No Information Patient Care Teams Name Effective Dates (start - stop) Status Members No Information
== END 2024-08-23 07:24 | disposition home or self-care (01) ==
PROVIDERS: PCP Physician Assistant; Visit Provider Physician Assistant
DX: Z12.31 Encounter for screening mammogram for malignant neoplasm of breast (principal)
CPT/HCPCS: 77063; 77067

== ENCOUNTER 2024-10-14 08:50 | Outpatient (CLI) | payer BC, SELFPAY ==
--- NOTE | ~2024-10-14 | XR_ITS ---
EXAMINATION: SACRUM/COCCYX DATE: 10/14/2024 10:11 INDICATION: Tail bone pain and low back pain after fall TECHNIQUE: Three views sacrum/coccyx FINDINGS: Sacrococcygeal disorder There is no displaced fracture of the sacrum. The coccyx demonstrates overall normal morphology with out acute angulation. IMPRESSION: 1. No acute displaced osseous abnormality of the sacrum. Suspicion for occult or nondisplaced sacral fracture can either be evaluated with CT or MRI. 2. Grossly normal morphology to the coccyx without acute angulation. However, due to the wide range of normal variation of the coccyx, acute injury would be best evaluated by clinical examination and patient's symptoms. Reviewed, dictated and finalized at location A.
== END 2024-10-14 08:51 | disposition home or self-care (01) ==
PROVIDERS: PCP Physician Assistant; Visit Provider Physician Assistant
DX: M53.3 Sacrococcygeal disorders, not elsewhere classified (principal)
CPT/HCPCS: 72220

== ENCOUNTER 2025-03-22 08:19 | Outpatient (CLI) | payer BC, SELFPAY ==
--- NOTE | ~2025-03-22 | MR_ITS ---
EXAMINATION: MR lumbar spine wo con DATE: 03/22/2025 09:17 INDICATION: Spondylosis without myelopathy or radiculopathy, lumbar region. TECHNIQUE: Magnetic resonance imaging (MRI) of the lumbar spine was performed without intravenous contrast. COMPARISON: Lumbar spine MRI 03/02/2018 FINDINGS: There is 3 degrees levocurvature of lumbar spine. Vertebral body heights are normal. Intervertebral disc heights are normal. The distal spinal cord signal intensity is normal. The conus medullaris is at L1. There is a 3.0 cm cyst in left kidney. The following disc levels are specifically discussed: L1-L2: The disc is bulging. There is mild bilateral facet joint osteoarthritis. There is mild bilateral neural foraminal stenosis. There is mild central canal stenosis. L2-L3: The disc is bulging. There is mild bilateral facet joint osteoarthritis. There is mild bilateral neural foraminal stenosis. There is mild central canal stenosis. L3-L4: The disc is bulging and has an annular fissure. There is mild bilateral facet joint osteoarthritis. There is mild bilateral neural foraminal stenosis. There is mild central canal stenosis. L4-L5: The disc is bulging and has an annular fissure. There is severe bilateral facet joint osteoarthritis. There is mild bilateral neural foraminal stenosis. There is mild central canal stenosis. L5-S1: The disc is bulging. There is severe bilateral facet joint osteoarthritis. There is mild bilateral neural foraminal stenosis. There is mild central canal stenosis. IMPRESSION: 1. Mild lumbar spondylosis, worsened from 03/02/2018. Reviewed, dictated and finalized at location E. [employer]
== END 2025-03-22 08:20 | disposition home or self-care (01) ==
LOC: MICIMG 08:20
PROVIDERS: PCP Physician Assistant; Visit Provider Physician Assistant
DX: M47.896 Other spondylosis, lumbar region (principal)
CPT/HCPCS: 72148